=== PATIENT | female | born 1940 | race Caucasian/White ===

== ENCOUNTER 2016-09-02 18:45 | Emergency (ER) | payer MEDICARE, BC, OTHER ==
[~2016-09-02] VITALS: Ht 162.6 cm; Wt 63.5 kg
[~2016-09-02 18:45] MED LIST: CALC250T8 PO; CHLO25TA3 PO; DEXA0.5S PO; EXCEDRIN PO; IBUP100SUS FT; IBUP200T2 PO; IBUP600T26 PO; KLOR10TA5 PO; MULTTAB4 PO; OMEGA 3 PO; OMEP20CA3 PO; QVAR40AE8 INH; VENTAER IN; VICOBULK PO
[2016-09-02] MEDS ORDERED: LEVO250T24 PO (19:15)
[2016-09-02] MEDS ORDERED: ONDA4TAB6 PO (19:16)
[2016-09-02] MEDS ORDERED: AMMO12CR4 TOP (19:16)
[2016-09-02] MEDS ORDERED: NS 1,000 ML IV SCH (19:51)
[2016-09-02] MEDS ORDERED: ONDANSETRON 4MG/2ML VIAL (J2405) IV ONE (20:00)
[2016-09-02] MEDS ORDERED: NS 1,000 ML IV ONE (20:00)
[2016-09-02 20:24] LABS: BASO % 0.3 % (0.0-1.0); EOS # 0.2 K/mm3 (0.0-0.50); LARGE UNSTAINED CELL # 0.2 K/mm3 (0.0-0.4); LARGE UNSTAINED CELL % 2.5 % (0.0-4.0); LYMPH % 14.8 % (24.0-44.0); MEAN CORPUSCULAR HEMOGLOBIN 30.1 pg (27.0-33.0); MEAN CORPUSCULAR HGB CONC 32.2 g/dl (32.0-36.5); MEAN CORPUSCULAR VOLUME 93.5 fl (80.0-96.0); MONO # 0.6 K/mm3 (0.0-0.8); MONO % 9.3 % (0.0-5.0); NEUTROPHILS # 4.8 K/mm3 (1.8-7.7); PLATELET COUNT, AUTOMATED 260 k/mm3 (150-450); RED CELL DISTRIBUTION WIDTH 13.5 % (11.5-14.5); WHITE BLOOD COUNT 6.8 K/mm3 (4.0-10.0)
[2016-09-02 20:51] LABS: ALBUMIN 3.9 GM/DL (3.2-5.2); ALBUMIN/GLOBULIN RATIO 0.98 (1.00-1.93); ALKALINE PHOSPHATASE 122 U/L (45-117); ALT/SGPT 16 U/L (12-78); ANION GAP 9 MEQ/L (8-16); AST/SGOT 17 U/L (15-37); BILIRUBIN,DIRECT 0.1 MG/DL (0.0-0.2); BILIRUBIN,TOTAL 0.5 MG/DL (0.2-1.0); BLOOD UREA NITROGEN 11 MG/DL (7-18); CARBON DIOXIDE LEVEL 31 MEQ/L (21-32); CHLORIDE LEVEL 91 MEQ/L (98-107); CREATININE FOR GFR 0.76 MG/DL (0.55-1.02); GLOMERULAR FILTRATION RATE > 60.0 (>39); GLUCOSE, FASTING 110 MG/DL (83-110); POTASSIUM SERUM 3.3 MEQ/L (3.5-5.1); SODIUM LEVEL 131 MEQ/L (136-145); TOTAL PROTEIN 7.9 GM/DL (6.4-8.2)
[2016-09-02] MEDS ORDERED: POTASSIUM CHLORIDE 10 MEQ SR TABLET PO ONE (21:15)
[2016-09-02] MEDS ORDERED: METOCLOPRAMIDE INJ 10MG/2ML VIAL (J2765) IV ONE (22:00)
[2016-09-02] MEDS ORDERED: REGL10TA6 PO (23:00)
[2016-09-02 23:06] VITALS: BP 146/68
--- NOTE | 2016-09-03 09:18 | REP ---
ABDOMINAL SERIES: Supine and erect views of the abdomen demonstrate no free air and no compelling evidence for obstruction. Moderate fecal material is seen throughout the colon. Air is seen in multiple nondilated small bowel loops throughout the mid abdomen. Multiple metallic clips are seen in the right upper quadrant. There are degenerative changes of the spine and hips. An accompanying view of the chest demonstrates no acute infiltrate. Heart is normal in size and the mediastinal silhouette is unremarkable with mild calcification and tortuosity of the thoracic aorta. IMPRESSION: Negative abdominal series. Signed by Dmitri Sparrow MD 09/04/2016 04:00 P
== END 2016-09-02 23:15 | disposition home or self-care (01) ==
LOC: M ED 19:57
DX: K59.00 Constipation, unspecified (principal); R11.2 Nausea with vomiting, unspecified; I10 Essential (primary) hypertension; J45.909 Unspecified asthma, uncomplicated; F32.9 Major depressive disorder, single episode, unspecified; Z85.841 Personal history of malignant neoplasm of brain; Z91.041 Radiographic dye allergy status; Z88.8 Allergy status to other drugs, medicaments and biological substances; Z88.5 Allergy status to narcotic agent; Z88.0 Allergy status to penicillin; Z88.2 Allergy status to sulfonamides
CPT/HCPCS: 74022; 80048; 80076; 81001; 83605; 83690; 85025; 87088; 87186; 96374; 96375; 99282; J2405; J2765

== ENCOUNTER → 2016-09-14 | Outpatient (REF) | payer MEDICARE, OTHER ==
[~2016-09-14] MED LIST changes: +AMMO12CR4 TOP; +LEVO250T24 PO; +ONDA4TAB6 PO; +REGL10TA6 PO
[2016-09-14 12:57] LABS: MEAN CORPUSCULAR HEMOGLOBIN 30.6 pg (27.0-33.0); MEAN CORPUSCULAR HGB CONC 32.5 g/dl (32.0-36.5); MEAN CORPUSCULAR VOLUME 94.2 fl (80.0-96.0); RED CELL DISTRIBUTION WIDTH 13.3 % (11.5-14.5); WHITE BLOOD COUNT 6.6 K/mm3 (4.0-10.0)
[2016-09-14 14:34] LABS: EOSINOPHILS 15 % (0-5)
[2016-09-14 14:37] LABS: ANISOCYTOSIS 1+
== END ==
LOC: M LAB REF 12:12
PROVIDERS: ATTEND Nurse Practitioner Family
DX: R11.2 Nausea with vomiting, unspecified (principal)

== ENCOUNTER → 2016-09-18 | Outpatient (REF) | payer MEDICARE, OTHER | LOC: M SMT 13:11 | PROVIDERS: ATTEND Nurse Practitioner Family | DX: R35.0 Frequency of micturition (principal) | CPT/HCPCS: 51798; 81001; 87086; G0463 ==

== ENCOUNTER → 2016-09-27 | Outpatient (CLI) | payer MEDICARE, BC, OTHER ==
[~2016-09-27] MED LIST changes: +E-Z-GAS II EFFERVESCENT PACKET (SODIUM BICARB./CITRIC ACID/SIMETHICONE) As Ordered ONE; +E-Z-HD 98% w/w 340GM SUSP BTL As Ordered ONE; +E-Z-PAQUE 96% w/w SUSP 176GM BTL As Ordered ONE
--- NOTE | 2016-09-27 16:37 | REP ---
ESOPHAGRAM, AIR CONTRAST: The procedure was performed under the direct supervision of Dr. Sparrow. The images were reviewed with Dr. Sparrow. A single view PA chest x-ray is submitted as a geotechnical laboratory technician film. There is no change compared to a previous chest x-ray performed on 09/02/2016. Liquid barium and gas-producing granules were given in the erect position as well as liquid barium in the prone oblique position in order to perform a double contrast esophagram examination. The oral and pharyngeal stages of deglutition are unremarkable. Esophageal transport is prompt and efficient and there is no esophagitis, stricture, mucosal ring or hiatal hernia. Gastroesophageal reflux is not demonstrated on this examination. IMPRESSION: Essentially unremarkable double contrast esophagram examination. 1 minute and 14 seconds of fluoroscopy time was utilized for this procedure. Reviewed by SHEELA Castellanos 09/28/2016 04:17 PEdited and Signed by Dmitri Sparrow MD 09/28/2016 04:21 P
== END ==
LOC: M RAD 08:28
PROVIDERS: ATTEND Nurse Practitioner Family
DX: K21.9 Gastro-esophageal reflux disease without esophagitis (principal)

== ENCOUNTER → 2016-10-03 | Outpatient (CLI) | payer MEDICARE, BC, OTHER ==
[~2016-10-03] MED LIST changes: -E-Z-GAS II EFFERVESCENT PACKET (SODIUM BICARB./CITRIC ACID/SIMETHICONE) As Ordered ONE; -E-Z-HD 98% w/w 340GM SUSP BTL As Ordered ONE; -E-Z-PAQUE 96% w/w SUSP 176GM BTL As Ordered ONE
--- NOTE | 2016-10-03 17:06 | REP ---
Attempted CT abdomen pelvis: History: Urinary frequency. The study was postponed because preliminary digital block sorter views of the abdomen demonstrate a large amount of retained high-density barium in the abdomen and pelvis. The patient had esophagram on 09/27/2016. High-density barium would preclude good visualization on CT scanning. The patient has been rescheduled. Signed by Tomas Velasco MD 10/04/2016 10:17 A
== END ==
LOC: M RAD 16:08
PROVIDERS: ATTEND Nurse Practitioner Family
DX: R35.0 Frequency of micturition (principal); Z53.09 Procedure and treatment not carried out because of other contraindication

== ENCOUNTER → 2016-10-24 | Outpatient (CLI) | payer MEDICARE, BC, OTHER ==
[~2016-10-24] MED LIST changes: +BENA25CA4 PO; +BUDE180INH INH; +CALC500T49 PO; +CALC750T PO; +CHLO125TA PO; +EXCETAB81 PO; +GABA-283 PO; +LEVO250T12 PO; -LEVO250T24 PO; +MACR100C43 PO; +MULT1TAB10 PO; +ONDA4TAB5 PO; +POTA10TA16 PO; +PULM0.5S INH; +PULM90IN INH; +TIZA4CAP3 PO; +[UNRECOGNIZED DRUG - CODE] PO; +[UNRECOGNIZED DRUG - REMARK]
--- NOTE | 2016-10-24 13:46 | REP ---
Clinical: Recurrent urinary tract infection. Comparison: 08/15/2012 . Findings: Lung bases demonstrate chronic interstitial changes and mild emphysematous disease. Liver, spleen, pancreas, bilateral adrenal glands and left kidney appear normal for noncontrast evaluation. The right kidney includes 1.6 cm hypodensity likely representing cyst and stable compared to prior. The enteric system demonstrates moderate fecal stasis without bowel obstruction or obvious acute inflammatory process. Diverticulosis noted without acute diverticulitis. Pelvis demonstrates normal bladder and evidence for prior hysterectomy. No ascites. No free air. No obvious adenopathy. Atherosclerotic changes to the vasculature noted without aneurysm. Musculoskeletal structures demonstrate degenerative changes to the lumbosacral spine and bilateral hips. Impression: 1. 1.6 cm right renal hypodensity likely representing cyst and stable. 2. Moderate fecal stasis and diverticulosis without acute obstruction or inflammatory process. 3. Chronic changes as described above without acute abdominopelvic pathology otherwise appreciated. Signed by Maxx Cadena MD 10/24/2016 01:39 P
== END ==
LOC: M RAD 13:10
PROVIDERS: ATTEND Nurse Practitioner Family
DX: N39.0 Urinary tract infection, site not specified (principal)

== ENCOUNTER 2016-10-27 15:56 | Emergency (ER) | payer MEDICARE, BC, OTHER ==
[~2016-10-27] VITALS: Ht 162.6 cm; Wt 92.5 kg
[~2016-10-27 15:56] MED LIST changes: -BENA25CA4 PO; -BUDE180INH INH; -CALC500T49 PO; -CALC750T PO; -CHLO125TA PO; -EXCETAB81 PO; -GABA-283 PO; -MACR100C43 PO; -MULT1TAB10 PO; -ONDA4TAB5 PO; -POTA10TA16 PO; -PULM0.5S INH; -PULM90IN INH; -TIZA4CAP3 PO; -[UNRECOGNIZED DRUG - CODE] PO; -[UNRECOGNIZED DRUG - REMARK]
[2016-10-27] MEDS ORDERED: PULM0.5S INH (16:07)
[2016-10-27] MEDS ORDERED: MACR100C43 PO (16:07)
--- NOTE | 2016-10-27 17:02 | REP ---
Clinical: Trauma to . Comparison: 05/30/2015 . Findings: Right periorbital and right facial contusion/hematoma. The ventricles, sulci, and cisterns are normal in position and appearance. Sparrow-white differentiation is maintained. No acute intracranial hemorrhage, mass/mass effect, pathology or trauma/injury. No evidence for acute infarction. No extra-axial fluid collection. Calvarium is intact. Paranasal sinuses and mastoid air cells are clear. Impression: Right periorbital and right facial contusion and hematoma. No evidence for acute intracranial pathology or trauma/injury. Signed by Maxx Cadena MD 10/27/2016 04:54 P
[2016-10-27 17:10] VITALS: BP 143/76
[2017-01-04] MEDS ORDERED: EXCETAB81 PO (13:54)
[2017-01-04] MEDS ORDERED: ONDA4TAB5 PO (13:54)
[2017-01-04] MEDS ORDERED: TIZA4CAP3 PO (13:54)
[2017-01-04] MEDS ORDERED: POTA10TA16 PO (13:54)
[2017-01-04] MEDS ORDERED: MULT1TAB10 PO (13:54)
[2017-01-04] MEDS ORDERED: OMEP20CA3 PO (13:54)
[2017-01-04] MEDS ORDERED: CHLO125TA PO (13:54)
[2017-01-04] MEDS ORDERED: CALC500T49 PO (13:54)
[2017-01-04] MEDS ORDERED: CALC750T PO (13:54)
[2017-01-04] MEDS ORDERED: BUDE180INH INH (14:02)
[2017-01-04] MEDS ORDERED: PULM90IN INH (14:02)
[2017-01-04] MEDS ORDERED: [UNRECOGNIZED DRUG - REMARK] (14:03)
== END 2016-10-27 17:21 | disposition home or self-care (01) ==
LOC: M ED 15:56
DX: S00.03XA Contusion of scalp, initial encounter (principal); S00.01XA Abrasion of scalp, initial encounter; W19.XXXA Unspecified fall, initial encounter; Y92.009 Unspecified place in unspecified non-institutional (private) residence as the place of occurrence of the external cause; Y93.89 Activity, other specified; Y99.8 Other external cause status; E78.00 Pure hypercholesterolemia, unspecified; J45.909 Unspecified asthma, uncomplicated; M54.9 Dorsalgia, unspecified; F32.9 Major depressive disorder, single episode, unspecified; N39.0 Urinary tract infection, site not specified; Z91.041 Radiographic dye allergy status; Z88.8 Allergy status to other drugs, medicaments and biological substances; Z88.0 Allergy status to penicillin; Z88.5 Allergy status to narcotic agent; Z88.2 Allergy status to sulfonamides; Z79.899 Other long term (current) drug therapy; Z79.2 Long term (current) use of antibiotics

== ENCOUNTER 2017-01-07 09:32 | Outpatient (CLI) | payer MEDICARE, BC, OTHER ==
[~2017-01-07] VITALS: Ht 165.1 cm; Wt 59.9 kg
[~2017-01-07 09:32] MED LIST changes: +BUDE180INH INH; +CALC500T49 PO; +CALC750T PO; +CHLO125TA PO; +EXCETAB81 PO; +MACR100C43 PO; +MULT1TAB10 PO; +ONDA4TAB5 PO; +POTA10TA16 PO; +PULM0.5S INH; +PULM90IN INH; +TIZA4CAP3 PO; +[UNRECOGNIZED DRUG - REMARK]
[2017-01-07] MEDS ORDERED: NS 1,000 ML IV ONE (09:45)
[2017-01-07] MEDS ORDERED: BENA25CA4 PO (10:08)
[2017-01-07] MEDS ORDERED: PROPOFOL 200 MG/20 ML VIAL As Ordered ONE (10:11)
[2017-01-07] MEDS ORDERED: LIDOCAINE 2% INJ 100 MG/5 ML SDV (FOR ANES.) As Ordered ONE (10:11)
--- NOTE | 2017-01-07 10:34 | ROOR ---
Patient Name: Viri Rodriguez Procedure Date: 01/07/2017 10:17 AM Date of : 1940 Age: 76 Room: [facility] Gender: Female Note Status: Finalized Procedure: Upper Endoscopy + Biopsies Indications: Heartburn, Nausea Providers: Marlo Ansari MD Referring MD: Min AGRAWAL NP Requesting Provider: Medicines: Monitored Anesthesia Care Complications: No immediate complications. Procedure: Pre-Anesthesia Assessment: - The heart rate, respiratory rate, oxygen saturations, blood pressure, adequacy of pulmonary ventilation, and response to care were monitored throughout the procedure. The Endoscope was introduced through the mouth, and advanced to the second part of duodenum. The upper GI endoscopy was accomplished without difficulty. The patient tolerated the procedure well. Findings: The Z-line was regular and was found 37 cm from the incisors. A small hiatal hernia was present. Diffuse mild inflammation characterized by congestion (edema) and erythema was found in the cardia, in the gastric fundus and in the gastric body. Biopsies were taken with a cold forceps for Helicobacter pylori testing. The exam of the duodenum was otherwise normal. Impression: - Z-line regular, 37 cm from the incisors. - Small hiatal hernia. - Chronic gastritis. Biopsied. - The examination was otherwise normal. Recommendation: - Patient has a contact number available for emergencies. The signs and symptoms of potential delayed complications were discussed with the patient. Return to normal activities tomorrow. Written discharge instructions were provided to the patient. - High fiber diet. - Discharge patient to home. - Continue present medications. - Await pathology results. - Telephone GI clinic for pathology results in 1 week. - Return to referring physician. - The findings and recommendations were discussed with the patient's family. Marlo Ansari MD Marlo Ansari MD 01/07/2017 10:34:04 AM This report has been signed electronically. Number of Addenda: 0 Note Initiated On: 01/07/2017 10:17 AM Estimated Blood Loss: Estimated blood loss: none.
[2017-01-07 10:50] VITALS: BP 114/60
== END 2017-01-07 11:15 | disposition home or self-care (01) ==
LOC: M OPP 09:32
PROVIDERS: ATTEND Internal Medicine Gastroenterology
DX: R12 Heartburn (principal); R11.0 Nausea; K44.9 Diaphragmatic hernia without obstruction or gangrene; K29.70 Gastritis, unspecified, without bleeding; K21.9 Gastro-esophageal reflux disease without esophagitis; K59.00 Constipation, unspecified; I10 Essential (primary) hypertension; M19.90 Unspecified osteoarthritis, unspecified site; M62.830 Muscle spasm of back; Z78.0 Asymptomatic menopausal state; J45.909 Unspecified asthma, uncomplicated; G47.30 Sleep apnea, unspecified; R06.83 Snoring; D35.00 Benign neoplasm of unspecified adrenal gland; Z88.8 Allergy status to other drugs, medicaments and biological substances; Z88.0 Allergy status to penicillin; Z88.2 Allergy status to sulfonamides; Z91.041 Radiographic dye allergy status; Z79.899 Other long term (current) drug therapy

== ENCOUNTER 2017-02-06 09:21 | Emergency (ER) | payer MEDICARE, BC, OTHER ==
[~2017-02-06] VITALS: Ht 162.6 cm; Wt 58.2 kg
[~2017-02-06 09:21] MED LIST changes: +BENA25CA4 PO
[2017-02-06] MEDS ORDERED: [UNRECOGNIZED DRUG - CODE] PO (09:36)
[2017-02-06] MEDS ORDERED: GABA-283 PO (09:36)
[2017-02-06] MEDS ORDERED: METOCLOPRAMIDE INJ 10MG/2ML VIAL (J2765) IV ONE (10:15)
[2017-02-06] MEDS ORDERED: NS 1,000 ML IV ONE (10:15)
[2017-02-06] MEDS ORDERED: PANTOPRAZOLE 40MG INJ (PROTONIX) (C9113) IV ONE (10:15)
[2017-02-06 10:38] LABS: BASO % 0.3 % (0.0-1.0); EOS # 0.2 10^3/uL (0.0-0.50); EOS % 3.3 % (0.0-3.0); IMMATURE GRANULOCYTE % 0.2 % (0-0); LYMPH # 0.4 10^3/uL (1.5-4.5); LYMPH % 7.4 % (24.0-44.0); MEAN CORPUSCULAR HEMOGLOBIN 28.8 pg (27.0-33.0); MEAN CORPUSCULAR HGB CONC 33.6 g/dl (32.0-36.5); MEAN CORPUSCULAR VOLUME 85.8 fl (80.0-96.0); MONO # 0.6 10^3/uL (0.0-0.8); MONO % 9.5 % (0.0-5.0); NEUTROPHILS # 4.6 10^3/uL (1.8-7.7); NEUTROPHILS % 79.3 % (36.0-66.0); PLATELET COUNT, AUTOMATED 276 10^3/uL (150-450); RED CELL DISTRIBUTION WIDTH 15.2 % (11.5-14.5); WHITE BLOOD COUNT 5.8 10^3/uL (4.0-10.0)
[2017-02-06 11:07] LABS: ALBUMIN 4.1 GM/DL (3.2-5.2); ALBUMIN/GLOBULIN RATIO 1.05 (1.00-1.93); ALKALINE PHOSPHATASE 131 U/L (45-117); ALT/SGPT 20 U/L (12-78); AMYLASE 52 U/L (25-115); ANION GAP 7 MEQ/L (8-16); AST/SGOT 29 U/L (15-37); BILIRUBIN,DIRECT 0.2 MG/DL (0.0-0.2); BILIRUBIN,TOTAL 0.6 MG/DL (0.2-1.0); BLOOD UREA NITROGEN 9 MG/DL (7-18); CALCIUM LEVEL 9.2 MG/DL (8.8-10.2); CARBON DIOXIDE LEVEL 32 MEQ/L (21-32); CHLORIDE LEVEL 95 MEQ/L (98-107); CREATININE FOR GFR 0.76 MG/DL (0.55-1.02); GLOMERULAR FILTRATION RATE > 60.0 (>39); GLUCOSE, FASTING 123 MG/DL (83-110); POTASSIUM SERUM 3.3 MEQ/L (3.5-5.1); SODIUM LEVEL 134 MEQ/L (136-145)
[2017-02-06] MEDS ORDERED: KETOROLAC 30 MG/ML VIAL (J1885) IV ONE (12:45)
[2017-02-06] MEDS ORDERED: POTASSIUM CHLORIDE 10 MEQ SR TABLET PO ONE (12:45)
[2017-02-06] MEDS ORDERED: REGL10TA6 PO (13:36)
[2017-02-06 13:43] VITALS: BP 128/68
== END 2017-02-06 13:44 | disposition home or self-care (01) ==
LOC: M ED 09:21
DX: K29.50 Unspecified chronic gastritis without bleeding (principal); K44.9 Diaphragmatic hernia without obstruction or gangrene; Z79.899 Other long term (current) drug therapy; Z91.041 Radiographic dye allergy status; Z88.8 Allergy status to other drugs, medicaments and biological substances; Z88.5 Allergy status to narcotic agent; Z88.0 Allergy status to penicillin; Z88.2 Allergy status to sulfonamides
CPT/HCPCS: 36415; 80048; 80076; 81001; 82150; 83605; 83690; 85025; 96374; 96375; 99283; C9113; J1885; J2765

== ENCOUNTER 2017-09-28 15:58 | Emergency (ER) | payer MEDICARE, BC, OTHER ==
[2017-09-28 17:37] LABS: BASO # 0.1 10^3/uL (0.0-0.2); BASO % 0.8 % (0.0-1.0); EOS # 0.4 10^3/uL (0.0-0.50); EOS % 6.7 % (0.0-3.0); HEMATOCRIT 39.3 % (36.0-47.0); HEMOGLOBIN 12.9 g/dl (12.0-15.5); IMMATURE GRANULOCYTE % 0.5 % (0-3.0); LYMPH # 1.4 10^3/uL (1.5-4.5); LYMPH % 20.9 % (24.0-44.0); MEAN CORPUSCULAR HEMOGLOBIN 28.5 pg (27.0-33.0); MEAN CORPUSCULAR HGB CONC 32.8 g/dl (32.0-36.5); MEAN CORPUSCULAR VOLUME 86.8 fl (80.0-96.0); MONO # 0.8 10^3/uL (0.0-0.8); MONO % 12.7 % (0.0-5.0); NEUTROPHILS # 3.8 10^3/uL (1.8-7.7); NEUTROPHILS % 58.4 % (36.0-66.0); PLATELET COUNT, AUTOMATED 243 10^3/uL (150-450); RED BLOOD COUNT 4.53 10^6/uL (4.00-5.40); RED CELL DISTRIBUTION WIDTH 14.7 % (11.5-14.5); WHITE BLOOD COUNT 6.5 10^3/uL (4.0-10.0)
[2017-09-28 17:47] LABS: INR 0.93; PROTHROMBIN TIME 12.5 SECONDS (12.4-14.5)
[2017-09-28] MEDS: NORCO, ANEXSIA 5/325MG TABLET (HYDROcodone/ACETAMINOPHEN) PO (17:47)
[2017-09-28] MEDS: ONDANSETRON 4MG/2ML VIAL (J2405) IV (17:47)
[2017-09-28 17:48] LABS: PARTIAL THROMBOPLASTIN TIME 30.7 SECONDS (26.8-37.9)
[2017-09-28 17:52] LABS: ALBUMIN 4.1 GM/DL (3.2-5.2); ALBUMIN/GLOBULIN RATIO 1.05 (1.00-1.93); ALKALINE PHOSPHATASE 98 U/L (45-117); ALT/SGPT 22 U/L (12-78); ANION GAP 5 MEQ/L (8-16); AST/SGOT 24 U/L (7-37); BILIRUBIN,DIRECT 0.1 MG/DL (0.0-0.2); BILIRUBIN,TOTAL 0.5 MG/DL (0.2-1.0); BLOOD UREA NITROGEN 10 MG/DL (7-18); CALCIUM LEVEL 8.7 MG/DL (8.8-10.2); CARBON DIOXIDE LEVEL 31 MEQ/L (21-32); CHLORIDE LEVEL 95 MEQ/L (98-107); CPK CREATINE PHOSPHOKINASE 151 U/L (26-192); CREATININE FOR GFR 0.78 MG/DL (0.55-1.30); GLOMERULAR FILTRATION RATE > 60.0 (>39); GLUCOSE, FASTING 92 MG/DL (70-100); LIPASE 112 U/L (73-393); MB/CK RELATIVE INDEX 0.66 (< OR =4); SODIUM LEVEL 131 MEQ/L (136-145); TROPONIN I < 0.02 NG/ML (< 0.10)
[2017-09-28] MEDS: diphenhydrAMINE INJ 50MG/ML VIAL (J1200) IV (18:22)
[2017-09-28] MEDS: methylPREDNISolone INJ 125 MG/2 ML VIAL (J2930) IV (18:22)
[2017-09-28] MEDS ORDERED: ISOVUE-370 76% 100ML VIAL (Q9967) As Ordered (18:55)
[2017-09-28 22:30] LABS: CK-MB VALUE MASS 1.2 NG/ML (<3.6); CPK CREATINE PHOSPHOKINASE 169 U/L (26-192); MB/CK RELATIVE INDEX 0.71 (< OR =4); TROPONIN I < 0.02 NG/ML (< 0.10)
[2017-09-28] MEDS: MORPHINE 4 MG/ML 1ML VIAL/SYRINGE (J2270) IV (23:37)
== END 2017-09-28 23:52 | disposition home or self-care (01) ==
LOC: M ED 15:58
DX: M54.6 Pain in thoracic spine (principal); G89.29 Other chronic pain; J45.909 Unspecified asthma, uncomplicated; G47.30 Sleep apnea, unspecified; K21.9 Gastro-esophageal reflux disease without esophagitis; F33.9 Major depressive disorder, recurrent, unspecified; J32.9 Chronic sinusitis, unspecified; Z98.890 Other specified postprocedural states; Z91.041 Radiographic dye allergy status; Z79.899 Other long term (current) drug therapy; Z87.891 Personal history of nicotine dependence; Z86.018 Personal history of other benign neoplasm; Z88.8 Allergy status to other drugs, medicaments and biological substances; Z88.0 Allergy status to penicillin; Z88.2 Allergy status to sulfonamides; Z88.5 Allergy status to narcotic agent
CPT/HCPCS: J2270

== ENCOUNTER 2019-04-29 15:26 | Emergency (ER) | payer MEDICARE, BC, OTHER ==
[~2019-04-29] VITALS: Ht 162.6 cm; Wt 60.5 kg
[~2019-04-29 15:26] MED LIST changes: -AMMO12CR4 TOP; +AMMO12CR7 TOP; +DEXA5LQ; +GABA-845 PO; +GABA600T4 PO; +HYDR-3719; +IBUP100S44 FT; -IBUP100SUS FT; +NAPR-837 PO; +OMEG12002 PO; +OMEP-172 PO; +TIZA4CAP PO; -TIZA4CAP3 PO; +[UNRECOGNIZED DRUG - CODE] PO
[2019-04-29] MEDS ORDERED: SILVER NITRATE APPLICATOR TOP ONE (16:00)
[2019-04-29] MEDS ORDERED: OXYMETAZOLINE NASAL SPRAY (AFRIN) ONE (16:00)
[2019-04-29] MEDS ORDERED: NS 500 ML IV ONE (16:00)
[2019-04-29 16:23] LABS: HEMATOCRIT 46.9 % (36.0-47.0); HEMOGLOBIN 14.7 g/dl (12.0-15.5); MEAN CORPUSCULAR HEMOGLOBIN 29.4 pg (27.0-33.0); MEAN CORPUSCULAR HGB CONC 31.3 g/dl (32.0-36.5); MEAN CORPUSCULAR VOLUME 93.8 fl (80.0-96.0); PLATELET COUNT, AUTOMATED 259 10^3/uL (150-450); WHITE BLOOD COUNT 7.6 10^3/uL (4.0-10.0)
[2019-04-29] MEDS ORDERED: occuvite PO (16:33)
[2019-04-29] MEDS ORDERED: tumeric PO (16:33)
[2019-04-29] MEDS ORDERED: vitamin b PO (16:33)
[2019-04-29 16:35] LABS: PARTIAL THROMBOPLASTIN TIME 29.9 SECONDS (25.0-38.4); PROTHROMBIN TIME 12.9 SECONDS (11.8-14.0)
[2019-04-29] MEDS ORDERED: DOXY100C37 PO (18:07)
[2019-04-29 18:22] VITALS: BP 164/77
[2019-04-29] MEDS ORDERED: DOXYCYCLINE HYCLATE 100 MG TAB PO ONE (18:30)
[2019-04-29] MEDS ORDERED: ONDANSETRON 4 MG ORAL DISINTEGRATING TAB (Q0162 PER 1MG) PO ONE (18:30)
== END 2019-04-29 19:21 | disposition home or self-care (01) ==
LOC: M ED 15:26
DX: R04.0 Epistaxis (principal); Z91.041 Radiographic dye allergy status; Z88.0 Allergy status to penicillin; Z88.2 Allergy status to sulfonamides; Z88.8 Allergy status to other drugs, medicaments and biological substances; Z79.899 Other long term (current) drug therapy
CPT/HCPCS: 85027; 85610; 85730; 86850; 86900; 86901; 99283; Q0162

== ENCOUNTER → 2019-10-02 | Outpatient (CLI) | payer MEDICARE, BC, OTHER ==
[~2019-10-02] MED LIST changes: +DOXY100C37 PO; -OMEP-172 PO; +OMEP1CAP73 PO; +ONDA-83 PO; -ONDA4TAB5 PO; +occuvite PO; +tumeric PO; +vitamin b PO
== END ==
LOC: M LABSMTC 11:49
PROVIDERS: ATTEND Physician Assistant
DX: Z11.59 Encounter for screening for other viral diseases (principal)

== ENCOUNTER → 2020-05-23 | Outpatient (REF) | payer MEDICARE, OTHER ==
[2020-05-23 18:00] LABS: APPEARANCE, URINE CLEAR (CLEAR); BACTERIA, URINE AUTO NEGATIVE (NEGATIVE); BILIRUBIN, URINE AUTO NEGATIVE (NEGATIVE); BLOOD, URINE BLOOD NEGATIVE (NEGATIVE); COLOR, URINE YELLOW (YELLOW); GLUCOSE, URINE (UA) AUTO NEGATIVE (NEGATIVE); KETONE, URINE AUTO NEGATIVE (NEGATIVE); LEUKOCYTE ESTERASE, URINE AUTO NEGATIVE (NEGATIVE); NITRITE, URINE AUTO NEGATIVE (NEGATIVE); PROTEIN, URINE AUTO NEGATIVE (NEGATIVE); RBC, URINE AUTO 1 /HPF (0-3); SPECIFIC GRAVITY URINE AUTO 1.006 (1.002-1.035); SQUAMOUS EPITHELIAL CELL UR AU 0 /HPF (0-6); UROBILINOGEN, URINE AUTO 0.2 mg/dL (0.0-2.0); WBC, URINE AUTO 0 /HPF (0-3)
== END ==
LOC: M SMT 17:08
PROVIDERS: ATTEND Nurse Practitioner Family
DX: N39.0 Urinary tract infection, site not specified (principal)
CPT/HCPCS: 81001; 87086; G0463

== ENCOUNTER → 2020-07-05 | Outpatient (CLI) | payer MEDICARE, BC, OTHER ==
--- NOTE | 2020-07-05 14:16 | REP ---
INDICATION: CHRONIC SINUSITIS. COMPARISON: Comparison is made with images from CT study of the brain dated October 27, 2016.. TECHNIQUE: Helical scanning is acquired and 2 mm axial images re-formatted. Coronal MPR images are generated and reviewed. FINDINGS: Digital preliminary plastic sheets finishing supervisor radiographs demonstrate large well pneumatized frontal sinuses bilaterally. The frontal sinuses are clear on axial and multiplanar re-formation CT images. There is no evidence of ethmoid sinus opacification. There are minimal mucosal thickening changes in the anterior ethmoid and the inferomedial frontal sinuses bilaterally. Maxillary sinuses are clear. Sphenoid sinuses are clear. Mastoid aeration is normal and symmetric. There are small pneumatized maxwell bullosa bilaterally. The ostiomeatal complexes are widely patent bilaterally however, there are bilateral Maris cells left larger than right. There is minimal mucosal thickening along the superior wall of the left infundibulum. Bony nasal septum is in the midline. Nasal turbinates soft tissues are otherwise unremarkable. Fairly prominent torus palatinus is noted. This is a normal variant. There are small maxillary kathya. 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 No intraorbital abnormality is seen. The visualized intracranial structures show minimal generalized volume loss. IMPRESSION: There are minimal mucosal changes as above. Bilateral Maris cells are noted. <Electronically signed by Jason Velasco > 07/05/20 [id number]
== END ==
LOC: M RAD 13:26
PROVIDERS: ATTEND Registered Nurse
DX: J32.9 Chronic sinusitis, unspecified (principal)

== ENCOUNTER → 2020-12-21 | Outpatient (REF) | payer MEDICARE, OTHER, BC ==
[~2020-12-21] MED LIST changes: -DOXY100C37 PO; +DOXY1CAP62 PO; +GABA-283 PO; -GABA-845 PO
[2020-12-21 17:28] LABS: C REACTIVE PROTEIN QUANTITATIV < 0.30 MG/DL (0.00-0.30); RHEUMATOID FACTOR QUANT < 10.0 IU/ML (<15.0)
== END ==
LOC: M LAB REF 16:38
PROVIDERS: ATTEND Registered Nurse
DX: M13.0 Polyarthritis, unspecified (principal)

== ENCOUNTER → 2021-06-23 | Outpatient (CLI) | payer BC, MEDICARE, OTHER ==
[~2021-06-23] MED LIST changes: +DEXA0.5E2 PO; +DOXY-443 PO; -DOXY1CAP62 PO; +DULO-34 PO; +FLUTISP; -HYDR-3719; +HYDR-3719 PO; -LEVO250T12 PO; +LEVO250T3 PO; +MULT-90 PO; +OCUVCAP2 PO; +OXYC1TAB23 PO; +POTA-149 PO; -POTA10TA16 PO; +POTA1TAB23 PO; +SUPETAB44 PO; +TIZA10TA PO; +TURM500C PO; +VIAC1CHW PO; +ZINC1TAB2 PO
== END ==
LOC: M LABSMTC 09:35
PROVIDERS: ATTEND Anesthesiology
DX: Z01.812 Encounter for preprocedural laboratory examination (principal); Z20.822 Contact with and (suspected) exposure to COVID-19

== ENCOUNTER 2021-06-28 08:51 | Day surgery (SDC) | payer OTHER ==
[~2021-06-28] VITALS: Ht 162.6 cm; Wt 59.8 kg
[~2021-06-28 08:51] MED LIST changes: +NS 1,000 ML IV ONE
[2021-06-28] MEDS ORDERED: LIDOCAINE 2% 100MG/5ML SDV (FOR ANES.) As Ordered ONE (09:29)
[2021-06-28] MEDS ORDERED: fentaNYL 100 MCG/2 ML INJECTION As Ordered ONE (09:29)
[2021-06-28] MEDS ORDERED: propofoL 500 MG/50 ML VIAL As Ordered ONE (09:29)
[2021-06-28 11:40] VITALS: BP 119/58
== END 2021-06-28 11:53 | disposition home or self-care (01) ==
LOC: M OPP 08:51
PROVIDERS: ATTEND Internal Medicine Gastroenterology
DX: Z12.11 Encounter for screening for malignant neoplasm of colon (principal); K57.30 Diverticulosis of large intestine without perforation or abscess without bleeding; K64.0 First degree hemorrhoids; K31.89 Other diseases of stomach and duodenum; R12 Heartburn; Z79.891 Long term (current) use of opiate analgesic; Z79.899 Other long term (current) drug therapy; Z88.0 Allergy status to penicillin; Z88.2 Allergy status to sulfonamides; Z88.8 Allergy status to other drugs, medicaments and biological substances; Z91.041 Radiographic dye allergy status
CPT/HCPCS: 43239; 88305; 88342; G0121; J3010

== ENCOUNTER → 2021-07-25 | Outpatient (CLI) | payer OTHER ==
[~2021-07-25] MED LIST changes: -NS 1,000 ML IV ONE
== END ==
LOC: M WHC 14:07
PROVIDERS: ATTEND Registered Nurse
DX: M81.0 Age-related osteoporosis without current pathological fracture (principal)

== ENCOUNTER 2021-08-26 13:03 | Observation (INO) | payer OTHER ==
[~2021-08-26] VITALS: Ht 162.6 cm; Wt 57.2 kg
[2021-08-26] MEDS ORDERED: NS 500 ML IV ONE ×2 (14:10→16:05)
[2021-08-26] MEDS ORDERED: METOCLOPRAMIDE INJ 10MG/2ML VIAL (J2765 PER 1) IV ONE (14:10)
[2021-08-26 14:57] LABS: BASO % 0.4 % (0.0-1.0); EOS % 0.6 % (0.0-3.0); HEMOGLOBIN 15.7 g/dl (12.0-15.5); LYMPH # 0.9 10^3/uL (1.5-5.0); LYMPH % 16.9 % (24.0-44.0); MEAN CORPUSCULAR HGB CONC 34.1 g/dl (32.0-36.5); MEAN CORPUSCULAR VOLUME 93.9 fl (80.0-96.0); MONO # 0.6 10^3/uL (0.0-0.8); NEUTROPHILS # 3.6 10^3/uL (1.5-8.5); NEUTROPHILS % 69.7 % (36.0-66.0); PLATELET COUNT, AUTOMATED 194 10^3/uL (150-450); WHITE BLOOD COUNT 5.2 10^3/uL (4.0-10.0)
[2021-08-26 15:59] LABS: ALBUMIN 4.2 GM/DL (3.2-5.2); ALT/SGPT 22 U/L (12-78); BILIRUBIN,DIRECT 0.1 MG/DL (0.0-0.2); BILIRUBIN,TOTAL 0.5 MG/DL (0.2-1.0); BLOOD UREA NITROGEN 15 MG/DL (7-18); CALCIUM LEVEL 9.8 MG/DL (8.8-10.2); CARBON DIOXIDE LEVEL 33 MEQ/L (21-32); CHLORIDE LEVEL 86 MEQ/L (98-107); CREATININE FOR GFR 0.62 MG/DL (0.55-1.30); GLOMERULAR FILTRATION RATE > 60.0 (>39); GLUCOSE, FASTING 100 MG/DL (70-100); LIPASE 101 U/L (73-393); POTASSIUM SERUM 3.3 MEQ/L (3.5-5.1); SODIUM LEVEL 128 MEQ/L (136-145); TOTAL PROTEIN 7.6 GM/DL (6.4-8.2)
[2021-08-26] MEDS ORDERED: KCL 10MEQ/100ML SWI (KRUN) 10 MEQ in IV 1 EA IV ONE ×2 (16:05→19:30)
[2021-08-26 16:13] LABS: MAGNESIUM LEVEL 1.9 MG/DL (1.8-2.4)
[2021-08-26] MEDS ORDERED: ONDANSETRON 4MG/2ML VIAL IV ONE (16:55)
[2021-08-26] MEDS ORDERED: NS 1,000 ML IV ONE (19:30)
[2021-08-26] MEDS ORDERED: fentaNYL 100 MCG/2 ML INJECTION IV ONE (19:30)
[2021-08-26] MEDS ORDERED: ONDANSETRON 4MG/2ML VIAL IV PRN (20:05)
[2021-08-26] MEDS ORDERED: PROMETHAZINE 25MG/ML 1ML VIAL IV PRN (20:05)
[2021-08-26] MEDS ORDERED: LIDOCAINE 5% (LIDODERM) PATCH TD PRN (20:05)
[2021-08-26] MEDS ORDERED: ACETAMINOPHEN TAB 650MG DOSE (2X325MG) PO PRN (20:05)
[2021-08-26] MEDS ORDERED: MORPHINE 4 MG/ML 1ML VIAL/SYRINGE IV PRN (20:15)
[2021-08-26] MEDS ORDERED: TIZA10TA PO ×2 (20:21)
[2021-08-26] MEDS ORDERED: ALBU83IN NEB (20:22)
[2021-08-26] MEDS ORDERED: HOME MED LIST COMPLETE! XX SCH (20:25)
[2021-08-26] MEDS ORDERED: ALBUTEROL SULFATE 2.5 MG/0.5 ML INH NEB SOLN NEB PRN (20:50)
[2021-08-26] MEDS ORDERED: FLUTICASONE HFA 110 MCG 12 GM INHALER (FLOVENT) INH SCH (21:00)
[2021-08-26] MEDS ORDERED: **NOTE PATIENT COMMENT** MISC XX SCH (21:00)
[2021-08-26] MEDS: KETOROLAC 30 MG/ML 1ML VIAL IV PRN (21:31)
[2021-08-26] MEDS: PANTOPRAZOLE 40MG VIAL IV SCH (21:31)
[2021-08-26] MEDS: KCL 20MEQ in NS 1000ML 1,000 ML IV SCH (22:28)
[2021-08-26 23:13] LABS: INR 0.89; PROTHROMBIN TIME 12.4 SECONDS (12.7-14.5)
[2021-08-26 23:14] LABS: PARTIAL THROMBOPLASTIN TIME 29.9 SECONDS (25.9-37.0)
[2021-08-26] MEDS ORDERED: BUDE180INH INH (23:51)
[2021-08-27] MEDS ORDERED: hydrOXYzine 50 MG TAB PO ONE (04:15)
[2021-08-27] MEDS: KCL 20MEQ in NS 1000ML 1,000 ML IV SCH (06:00)
[2021-08-27 06:14] LABS: HEMATOCRIT 43.8 % (36.0-47.0); MEAN CORPUSCULAR HEMOGLOBIN 31.9 pg (27.0-33.0); MEAN CORPUSCULAR HGB CONC 34.2 g/dl (32.0-36.5); MEAN CORPUSCULAR VOLUME 93.2 fl (80.0-96.0); PLATELET COUNT, AUTOMATED 184 10^3/uL (150-450); WHITE BLOOD COUNT 5.4 10^3/uL (4.0-10.0)
[2021-08-27 06:40] LABS: BLOOD UREA NITROGEN 10 MG/DL (7-18); CALCIUM LEVEL 8.8 MG/DL (8.8-10.2); CARBON DIOXIDE LEVEL 34 MEQ/L (21-32); CHLORIDE LEVEL 96 MEQ/L (98-107); CREATININE FOR GFR 0.73 MG/DL (0.55-1.30); GLOMERULAR FILTRATION RATE > 60.0 (>39); GLUCOSE, FASTING 96 MG/DL (70-100); MAGNESIUM LEVEL 1.8 MG/DL (1.8-2.4); POTASSIUM SERUM 3.4 MEQ/L (3.5-5.1); SODIUM LEVEL 135 MEQ/L (136-145)
[2021-08-27] MEDS ORDERED: BUDESONIDE 180MCG INHALER (PULMICORT FLEXHALER) INH SCH (08:00)
[2021-08-27] MEDS: PANTOPRAZOLE 40MG VIAL IV SCH (08:58)
[2021-08-27] MEDS ORDERED: ENOXAPARIN 40MG/0.4ML SYRINGE (J1650 PER 10MG) SC SCH (09:00)
[2021-08-27] MEDS ORDERED: POTASSIUM CHLORIDE 10MEQ SR TABLET PO ONE (10:00)
[2021-08-27 12:23] LABS: BLOOD UREA NITROGEN 10 MG/DL (7-18); CALCIUM LEVEL 8.6 MG/DL (8.8-10.2); CARBON DIOXIDE LEVEL 31 MEQ/L (21-32); CHLORIDE LEVEL 98 MEQ/L (98-107); CREATININE FOR GFR 0.62 MG/DL (0.55-1.30); GLOMERULAR FILTRATION RATE > 60.0 (>39); GLUCOSE, FASTING 85 MG/DL (70-100); POTASSIUM SERUM 3.5 MEQ/L (3.5-5.1); SODIUM LEVEL 135 MEQ/L (136-145)
[2021-08-27] MEDS: KETOROLAC 30 MG/ML 1ML VIAL IV PRN (12:42)
[2021-08-27 14:37] VITALS: BP 137/86
== END 2021-08-27 14:43 | disposition home or self-care (01) ==
LOC: M ED 13:03 → M ED INP 13:04
PROVIDERS: ADMIT Family Medicine; ATTEND Family Medicine
DX: R11.2 Nausea with vomiting, unspecified (principal); M54.9 Dorsalgia, unspecified; G89.29 Other chronic pain; E87.1 Hypo-osmolality and hyponatremia; E87.6 Hypokalemia; U07.1 COVID-19; J45.909 Unspecified asthma, uncomplicated; I10 Essential (primary) hypertension; E78.5 Hyperlipidemia, unspecified; K21.9 Gastro-esophageal reflux disease without esophagitis; R32 Unspecified urinary incontinence; G47.33 Obstructive sleep apnea (adult) (pediatric); Z79.899 Other long term (current) drug therapy; Z79.51 Long term (current) use of inhaled steroids; Z91.041 Radiographic dye allergy status; Z88.0 Allergy status to penicillin; Z88.5 Allergy status to narcotic agent; Z88.2 Allergy status to sulfonamides; Z88.8 Allergy status to other drugs, medicaments and biological substances
CPT/HCPCS: 36415; 71046; 80047; 80048; 80076; 81001; 83690; 83735; 85025; 85027; 85610; 85730; 96361; 96365; 96366; 96372; 96375; 96376; 99285; G0378; J1650; J1885; J2270; J2405; J2765; J3010

== ENCOUNTER 2021-10-05 13:31 | Emergency (ER) | payer OTHER ==
[~2021-10-05] VITALS: Ht 162.6 cm; Wt 57.4 kg
[~2021-10-05 13:31] MED LIST changes: +ALBU2.5V10 NEB
[2021-10-05] MEDS ORDERED: NS 1,000 ML IV ONE (18:25)
[2021-10-05] MEDS ORDERED: NORCO, ANEXSIA 5/325MG TABLET (HYDROcodone/ACETAMINOPHEN) PO ONE ×2 (18:25→19:50)
[2021-10-05] MEDS ORDERED: ONDANSETRON 4MG/2ML VIAL IV ONE (18:25)
[2021-10-05] MEDS ORDERED: FLUoxetine 20MG CAP PO ONE (18:35)
[2021-10-05 18:56] LABS: BASO % 0.6 % (0.0-1.0); EOS # 0.2 10^3/uL (0.0-0.5); EOS % 2.5 % (0.0-3.0); HEMATOCRIT 42.7 % (36.0-47.0); HEMOGLOBIN 14.3 g/dl (12.0-15.5); LYMPH # 1.1 10^3/uL (1.5-5.0); LYMPH % 15.7 % (24.0-44.0); MEAN CORPUSCULAR HGB CONC 33.5 g/dl (32.0-36.5); MEAN CORPUSCULAR VOLUME 95.5 fl (80.0-96.0); MONO # 0.7 10^3/uL (0.0-0.8); MONO % 10.6 % (2.0-8.0); NEUTROPHILS # 4.7 10^3/uL (1.5-8.5); NEUTROPHILS % 70.2 % (36.0-66.0); PLATELET COUNT, AUTOMATED 250 10^3/uL (150-450); RED BLOOD COUNT 4.47 10^6/uL (4.00-5.40); WHITE BLOOD COUNT 6.7 10^3/uL (4.0-10.0)
[2021-10-05 19:18] LABS: ALBUMIN 3.9 GM/DL (3.2-5.2); ALT/SGPT 12 U/L (12-78); BILIRUBIN,DIRECT 0.1 MG/DL (0.0-0.2); BILIRUBIN,TOTAL 0.5 MG/DL (0.2-1.0); BLOOD UREA NITROGEN 8 MG/DL (7-18); CALCIUM LEVEL 9.9 MG/DL (8.8-10.2); CARBON DIOXIDE LEVEL 28 MEQ/L (21-32); CHLORIDE LEVEL 103 MEQ/L (98-107); CREATININE FOR GFR 0.72 MG/DL (0.55-1.30); GLOMERULAR FILTRATION RATE > 60.0 (>32); GLUCOSE, FASTING 110 MG/DL (70-100); LIPASE 115 U/L (73-393); POTASSIUM SERUM 3.8 MEQ/L (3.5-5.1); SODIUM LEVEL 141 MEQ/L (136-145); TOTAL PROTEIN 7.2 GM/DL (6.4-8.2)
[2021-10-05 19:20] LABS: CK-MB VALUE MASS < 1.0 NG/ML (<3.6); CPK CREATINE PHOSPHOKINASE 64 U/L (26-192); MB/CK RELATIVE INDEX 1.56 (< OR =4)
[2021-10-05 20:22] LABS: CK-MB VALUE MASS < 1.0 NG/ML (<3.6); CPK CREATINE PHOSPHOKINASE 60 U/L (26-192); MB/CK RELATIVE INDEX 1.67 (< OR =4)
[2021-10-05] MEDS ORDERED: KETOROLAC 30 MG/ML 1ML VIAL IV ONE (20:35)
[2021-10-05 21:14] VITALS: BP 152/73
== END 2021-10-05 21:16 | disposition home or self-care (01) ==
LOC: M ED 13:31
DX: F19.230 Other psychoactive substance dependence with withdrawal, uncomplicated (principal); R11.0 Nausea; E86.0 Dehydration; I10 Essential (primary) hypertension; R53.83 Other fatigue; G47.30 Sleep apnea, unspecified; E78.5 Hyperlipidemia, unspecified; F32.A Depression, unspecified; G89.29 Other chronic pain; M54.50 Low back pain, unspecified; Z88.0 Allergy status to penicillin; Z88.2 Allergy status to sulfonamides; Z88.5 Allergy status to narcotic agent; Z79.899 Other long term (current) drug therapy
CPT/HCPCS: 36415; 71046; 80048; 80076; 82550; 82553; 83690; 84484; 85025; 93005; 96361; 96374; 96375; 99284; J1885; J2405

== ENCOUNTER → 2021-10-09 | Outpatient (CLI) | payer OTHER ==
[~2021-10-09] MED LIST changes: +ISOVUE-300 61% 50ML VIAL As Ordered ONE; +LIDOCAINE 1% MDV 20ML VIAL As Ordered ONE; +methylPREDNISolone SUSP 40MG/ML 1ML VIAL (DEPO MEDROL) As Ordered ONE
== END ==
LOC: M RADPRO 12:33
PROVIDERS: ATTEND Physician Assistant
DX: M16.12 Unilateral primary osteoarthritis, left hip (principal)
CPT/HCPCS: 20610; 76000; J1030; Q9967

== ENCOUNTER → 2022-03-15 | Outpatient (CLI) | payer OTHER ==
[~2022-03-15] MED LIST changes: -ISOVUE-300 61% 50ML VIAL As Ordered ONE; +LEVO1TAB38 PO; -LEVO250T3 PO; -LIDOCAINE 1% MDV 20ML VIAL As Ordered ONE; -methylPREDNISolone SUSP 40MG/ML 1ML VIAL (DEPO MEDROL) As Ordered ONE
[2022-03-15 20:03] LABS: ALBUMIN 3.9 G/DL (3.2-5.2); ALT/SGPT 10 U/L (7.0-40); BILIRUBIN,TOTAL 0.4 MG/DL (0.3-1.2); BLOOD UREA NITROGEN 15 MG/DL (9-23); CALCIUM LEVEL 10.1 MG/DL (8.3-10.6); CHLORIDE LEVEL 96 MMOL/L (98-107); CREATININE FOR GFR 0.63 MG/DL (0.55-1.30); GLOMERULAR FILTRATION RATE > 60.0 (>32); GLUCOSE, FASTING 78 MG/DL (74-106); MAGNESIUM LEVEL 1.8 MG/DL (1.8-2.4); POTASSIUM SERUM 4.1 MMOL/L (3.5-5.1); SODIUM LEVEL 136 MMOL/L (136-145); TOTAL PROTEIN 6.6 G/DL (5.7-8.2)
[2022-03-15 20:20] LABS: CARBON DIOXIDE LEVEL 34 MMOL/L (20-31)
== END ==
LOC: M PLALAB 15:35
PROVIDERS: ATTEND Physician Assistant
DX: I10 Essential (primary) hypertension (principal)

== ENCOUNTER → 2022-07-10 | Outpatient (CLI) | payer MEDICARE | LOC: M RAD 17:00 | PROVIDERS: ATTEND Internal Medicine Pulmonary Disease | DX: J45.30 Mild persistent asthma, uncomplicated (principal) ==

== ENCOUNTER → 2022-07-26 | Outpatient (REF) | payer MEDICARE ==
[2022-07-26 17:28] LABS: PERCENT SATURATION 34.5 % (13.2-45.0)
[2022-07-26 17:51] LABS: APPEARANCE, URINE CLEAR (CLEAR); BACTERIA, URINE AUTO NEGATIVE (NEGATIVE); BILIRUBIN, URINE AUTO NEGATIVE (NEGATIVE); BLOOD, URINE BLOOD NEGATIVE (NEGATIVE); COLOR, URINE YELLOW (YELLOW); GLUCOSE, URINE (UA) AUTO NEGATIVE (NEGATIVE); KETONE, URINE AUTO NEGATIVE (NEGATIVE); LEUKOCYTE ESTERASE, URINE AUTO NEGATIVE (NEGATIVE); NITRITE, URINE AUTO NEGATIVE (NEGATIVE); PROTEIN, URINE AUTO NEGATIVE (NEGATIVE); RBC, URINE AUTO 2 /HPF (0-3); SQUAMOUS EPITHELIAL CELL UR AU 0 /HPF (0-6); UROBILINOGEN, URINE AUTO 0.2 mg/dL (0.0-2.0); WBC, URINE AUTO 0 /HPF (0-3)
[2022-07-26 18:04] LABS: INR 0.92; PROTHROMBIN TIME 12.6 SECONDS (12.5-14.5)
== END ==
LOC: M LAB REF 16:04
PROVIDERS: ATTEND Internal Medicine
DX: Z01.818 Encounter for other preprocedural examination (principal); Z79.01 Long term (current) use of anticoagulants; D50.9 Iron deficiency anemia, unspecified

== ENCOUNTER → 2022-10-08 | Outpatient (CLI) | payer MEDICARE ==
[~2022-10-08] MED LIST changes: +FLUT50SP17; -FLUTISP
[2022-10-08 18:05] LABS: BLOOD UREA NITROGEN 14 MG/DL (9-23); CALCIUM LEVEL 9.3 MG/DL (8.3-10.6); CARBON DIOXIDE LEVEL 32 MMOL/L (20-31); CHLORIDE LEVEL 98 MMOL/L (98-107); CREATININE FOR GFR 0.66 MG/DL (0.55-1.30); GLOMERULAR FILTRATION RATE > 60.0 (>32); GLUCOSE, FASTING 83 MG/DL (74-106); SODIUM LEVEL 136 MMOL/L (136-145)
== END ==
LOC: M WUC 14:49
PROVIDERS: ATTEND Physician Assistant
DX: I10 Essential (primary) hypertension (principal)

== ENCOUNTER → 2022-10-18 | Outpatient (CLI) | payer MEDICARE ==
[2022-10-18 17:59] LABS: BLOOD UREA NITROGEN 14 MG/DL (9-23); CALCIUM LEVEL 9.9 MG/DL (8.3-10.6); CARBON DIOXIDE LEVEL 34 MMOL/L (20-31); CHLORIDE LEVEL 97 MMOL/L (98-107); GLOMERULAR FILTRATION RATE > 60.0 (>32); GLUCOSE, FASTING 80 MG/DL (74-106); POTASSIUM SERUM 4.7 MMOL/L (3.5-5.1); SODIUM LEVEL 134 MMOL/L (136-145)
== END ==
LOC: M WUC 13:38
PROVIDERS: ATTEND Physician Assistant
DX: I10 Essential (primary) hypertension (principal)

== ENCOUNTER 2022-11-08 12:06 | Inpatient (IN) | payer MEDICARE ==
[~2022-11-08] VITALS: Ht 160 cm; Wt 59.6 kg
[2022-11-08] MEDS ORDERED: ACETAMINOPHEN 500 MG TAB PO ONE (12:35)
[2022-11-08 13:04] LABS: BASO % 0.4 % (0.0-1.0); EOS # 0.1 10^3/uL (0.0-0.5); EOS % 0.8 % (0.0-3.0); HEMATOCRIT 46.2 % (36.0-47.0); HEMOGLOBIN 15.5 g/dl (12.0-15.5); LYMPH # 0.7 10^3/uL (1.5-5.0); LYMPH % 6.5 % (24.0-44.0); MEAN CORPUSCULAR HEMOGLOBIN 31.3 pg (27.0-33.0); MEAN CORPUSCULAR HGB CONC 33.5 g/dl (32.0-36.5); MEAN CORPUSCULAR VOLUME 93.3 fl (80.0-96.0); MONO % 9.8 % (2.0-8.0); NEUTROPHILS # 8.3 10^3/uL (1.5-8.5); NEUTROPHILS % 82.1 % (36.0-66.0); PLATELET COUNT, AUTOMATED 179 10^3/uL (150-450); RED BLOOD COUNT 4.95 10^6/uL (4.00-5.40); WHITE BLOOD COUNT 10.1 10^3/uL (4.0-10.0)
[2022-11-08 13:28] LABS: CK-MB VALUE MASS < 1.0 NG/ML (<3.6)
[2022-11-08 13:30] LABS: LIPASE 23 U/L (12-53)
[2022-11-08 13:32] LABS: THYROID STIMULATING HORMONE 1.261 uIU/ML (0.55-4.78)
[2022-11-08 13:33] LABS: ALBUMIN 4.2 G/DL (3.2-5.2); ALKALINE PHOSPHATASE 99 U/L (46-116); ALT/SGPT 12 U/L (7.0-40); AST/SGOT < 8 U/L (<34); BILIRUBIN,DIRECT 0.2 MG/DL (<0.4); BILIRUBIN,TOTAL 0.7 MG/DL (0.3-1.2); BLOOD UREA NITROGEN 10 MG/DL (9-23); CALCIUM LEVEL 9.3 MG/DL (8.3-10.6); CARBON DIOXIDE LEVEL 30 MMOL/L (20-31); CHLORIDE LEVEL 96 MMOL/L (98-107); CREATININE FOR GFR 0.58 MG/DL (0.55-1.30); GLOMERULAR FILTRATION RATE > 60.0 (>32); GLUCOSE, FASTING 106 MG/DL (74-106); POTASSIUM SERUM 3.2 MMOL/L (3.5-5.1); SODIUM LEVEL 135 MMOL/L (136-145)
[2022-11-08 13:35] LABS: CPK CREATINE PHOSPHOKINASE 78 U/L (34-145); MB/CK RELATIVE INDEX 1.28 (< OR =4)
[2022-11-08] MEDS ORDERED: diphenhydrAMINE 50MG/ML VIAL IV STA (13:43)
[2022-11-08] MEDS ORDERED: methylPREDNISolone 125MG 2ML VIAL IV ONE (13:45)
[2022-11-08] MEDS ORDERED: ISOVUE-370 76% 100ML VIAL As Ordered ONE (13:47)
[2022-11-08] MEDS: POTASSIUM CHLORIDE 10MEQ SR TABLET PO ONE ×2 (14:00→14:12)
[2022-11-08] MEDS ORDERED: POTASSIUM CHLORIDE 10% LIQ 20MEQ/15ML UDC PO ONE (14:25)
[2022-11-08] MEDS ORDERED: KETOROLAC 30 MG/ML 1ML VIAL IV ONE (14:55)
[2022-11-08 15:02] LABS: ABG BASE EXCESS 3.5 (-2.0-2.0); ABG HCO3 28.4 MMOL/L (22.0-26.0); ABG O2 SATURATION 92.8 % (95.0-99.0); ABG PARTIAL PRESSURE CO2 44.1 mmHg (35.0-45.0); ABG PARTIAL PRESSURE O2 62.6 mmHg (75.0-100.0); ABG STANDARD HCO3 27.4 MMOL/L. (22.0-26.0); ABG TOTAL CO2 29.8 MMOL/L (23.0-31.0); ABG pH (ARTERIAL) 7.427 UNITS (7.350-7.450)
[2022-11-08 15:51] LABS: ETHYL ALCOHOL (ETHANOL) < 0.003 % (0.000-0.010)
[2022-11-08 16:36] LABS: AMPHETAMINES LEVEL URINE NEGATIVE (NEGATIVE); BARBITURATES URINE NEGATIVE (NEGATIVE); BENZODIAZEPINES URINE NEGATIVE (NEGATIVE); CANNABINOIDS URINE NEGATIVE (NEGATIVE); COCAINE METABOLITE URINE NEGATIVE (NEGATIVE); METHADONE URINE NEGATIVE (NEGATIVE); PHENCYCLIDINE URINE NEGATIVE (NEGATIVE)
[2022-11-08 16:41] LABS: OPIATES URINE POSITIVE (NEGATIVE)
[2022-11-08] MEDS ORDERED: LevoFLOXacin IV 750 MG in IV 1 EA IV ONE (17:00)
[2022-11-08] MEDS ORDERED: MED REC IN PROGRESS XX SCH (17:40)
[2022-11-08] MEDS ORDERED: LOSA50TA28 PO (18:47)
[2022-11-08] MEDS ORDERED: FLUT22IN INH (18:47)
[2022-11-08] MEDS ORDERED: ONDANSETRON 4MG TAB PO PRN (18:50)
[2022-11-08] MEDS ORDERED: ALBUTEROL SULFATE 2.5MG/0.5ML INH NEB SOLN NEB PRN (18:50)
[2022-11-08] MEDS ORDERED: HOME MED LIST COMPLETE! XX SCH (18:55)
[2022-11-08 20:30] VITALS: BP 168/84; TEMP 99; O2SAT 95
[2022-11-08] MEDS: NS 1,000 ML IV SCH (20:43)
[2022-11-08] MEDS: NORCO, ANEXSIA 5/325MG TABLET (HYDROcodone/ACETAMINOPHEN) PO PRN (20:44)
[2022-11-08 21:00] VITALS: O2SAT 97
[2022-11-08] MEDS ORDERED: LOSARTAN 50MG TABLET PO SCH (21:00)
[2022-11-08 22:00] VITALS: O2SAT 94
[2022-11-08] MEDS: tiZANidine 4 MG TAB PO PRN (22:06)
[2022-11-08 23:00] VITALS: O2SAT 94
[2022-11-08] MEDS: GABAPENTIN 300 MG CAP PO SCH (23:57)
[2022-11-09] VITALS (13 sets, daily range): BP systolic 62–159; BP diastolic 38–90; TEMP 97–99.2; O2SAT 93–98
[2022-11-09] MEDS ORDERED: NS 1,000 ML IV ONE (01:10)
[2022-11-09 06:07] LABS: HEMOGLOBIN 13.9 g/dl (12.0-15.5); LYMPH # 0.7 10^3/uL (1.5-5.0); MEAN CORPUSCULAR HEMOGLOBIN 31.3 pg (27.0-33.0); MEAN CORPUSCULAR HGB CONC 33.1 g/dl (32.0-36.5); MEAN CORPUSCULAR VOLUME 94.6 fl (80.0-96.0); MONO # 0.4 10^3/uL (0.0-0.8); MONO % 4.3 % (2.0-8.0); NEUTROPHILS # 8.4 10^3/uL (1.5-8.5); NEUTROPHILS % 87.7 % (36.0-66.0); PLATELET COUNT, AUTOMATED 163 10^3/uL (150-450); RED BLOOD COUNT 4.44 10^6/uL (4.00-5.40); WHITE BLOOD COUNT 9.6 10^3/uL (4.0-10.0)
[2022-11-09] MEDS: GABAPENTIN 300 MG CAP PO SCH ×4 (06:29→23:53)
[2022-11-09 06:42] LABS: BLOOD UREA NITROGEN 13 MG/DL (9-23); CARBON DIOXIDE LEVEL 29 MMOL/L (20-31); CHLORIDE LEVEL 99 MMOL/L (98-107); CREATININE FOR GFR 0.68 MG/DL (0.55-1.30); GLOMERULAR FILTRATION RATE > 60.0 (>32); GLUCOSE, FASTING 136 MG/DL (74-106); MAGNESIUM LEVEL 1.6 MG/DL (1.8-2.4); POTASSIUM SERUM 3.3 MMOL/L (3.5-5.1); SODIUM LEVEL 135 MMOL/L (136-145)
[2022-11-09] MEDS ORDERED: MAG SULF 1GM/100ML (MAG RUN) 1 GM in IV 1 EA IV ONE (07:00)
[2022-11-09] MEDS: FLUTICASONE HFA 220 MCG 12 GM INHALER (FLOVENT) INH SCH ×2 (09:00→20:17)
[2022-11-09] MEDS ORDERED: POTASSIUM CHLORIDE 10MEQ SR TABLET PO ONE (09:00)
[2022-11-09] MEDS ORDERED: CHLORTHALIDONE 12.5MG PER 1/2 TABLET PO SCH (09:00)
[2022-11-09] MEDS: BUDESONIDE 180MCG INHALER (PULMICORT FLEXHALER) INH SCH ×2 (09:01→20:17)
[2022-11-09] MEDS: MAG SULF 1GM/100ML (MAG RUN) 1 GM in IV 1 EA IV SCH ×2 (09:35→11:42)
[2022-11-09] MEDS: NS 1,000 ML IV SCH (09:35)
[2022-11-09] MEDS: ENOXAPARIN 40MG/0.4ML SYRINGE (J1650 PER 10MG) SC SCH (09:36)
[2022-11-09] MEDS: tiZANidine 4 MG TAB PO PRN (09:37)
[2022-11-09] MEDS: NORCO, ANEXSIA 5/325MG TABLET (HYDROcodone/ACETAMINOPHEN) PO PRN ×3 (09:38→23:04)
[2022-11-09] MEDS ORDERED: MIRALAX *UNIT DOSE* 17GM PACKET PO PRN (09:40)
[2022-11-09] MEDS ORDERED: SENNA 8.6 MG TAB (SENOKOT) PO PRN (11:10)
[2022-11-09] MEDS ORDERED: MOM 30ML SUSPENSION UDC PO PRN (11:10)
[2022-11-09] MEDS ORDERED: DOCUSATE SODIUM 100MG CAPSULE PO PRN (11:10)
[2022-11-09] MEDS ORDERED: MAGNESIUM SULFATE 1GM/100ML D5W BAG (10MG/ML) As Ordered ONE (11:35)
[2022-11-09] MEDS: guaiFENesin 200 MG TAB PO SCH ×2 (13:35→20:36)
[2022-11-09] MEDS ORDERED: NS 500 ML IV ONE (13:35)
[2022-11-09] MEDS ORDERED: LevoFLOXacin 750 MG TABLET PO SCH (18:00)
[2022-11-09] MEDS ORDERED: LevoFLOXacin IV 750 MG in IV 1 EA IV SCH (18:00)
[2022-11-09] MEDS ORDERED: ACETAMINOPHEN TAB 650MG DOSE (2X325MG) PO ONE (21:05)
[2022-11-10 02:45] VITALS: BP 178/92
[2022-11-10] MEDS ORDERED: ONDANSETRON 4MG ORAL DISINTEGRATING TAB PO ONE (03:00)
[2022-11-10 03:09] VITALS: BP 178/92
[2022-11-10 04:00] VITALS: BP 132/94; TEMP 97.7; O2SAT 97
[2022-11-10 05:33] LABS: BASO % 0.1 % (0.0-1.0); EOS # 0.1 10^3/uL (0.0-0.5); EOS % 0.6 % (0.0-3.0); HEMATOCRIT 42.9 % (36.0-47.0); HEMOGLOBIN 14.4 g/dl (12.0-15.5); LYMPH # 1.3 10^3/uL (1.5-5.0); LYMPH % 8.4 % (24.0-44.0); MEAN CORPUSCULAR HEMOGLOBIN 31.6 pg (27.0-33.0); MEAN CORPUSCULAR HGB CONC 33.6 g/dl (32.0-36.5); MEAN CORPUSCULAR VOLUME 94.3 fl (80.0-96.0); MONO # 1.4 10^3/uL (0.0-0.8); MONO % 9.3 % (2.0-8.0); NEUTROPHILS # 12.2 10^3/uL (1.5-8.5); NEUTROPHILS % 81.1 % (36.0-66.0); PLATELET COUNT, AUTOMATED 198 10^3/uL (150-450); RED BLOOD COUNT 4.55 10^6/uL (4.00-5.40); WHITE BLOOD COUNT 15.1 10^3/uL (4.0-10.0)
[2022-11-10 05:55] LABS: BLOOD UREA NITROGEN 13 MG/DL (9-23); CARBON DIOXIDE LEVEL 26 MMOL/L (20-31); CHLORIDE LEVEL 101 MMOL/L (98-107); CREATININE FOR GFR 0.61 MG/DL (0.55-1.30); GLOMERULAR FILTRATION RATE > 60.0 (>32); GLUCOSE, FASTING 106 MG/DL (74-106); POTASSIUM SERUM 3.9 MMOL/L (3.5-5.1); SODIUM LEVEL 135 MMOL/L (136-145)
[2022-11-10] MEDS: GABAPENTIN 300 MG CAP PO SCH (06:28)
[2022-11-10] MEDS: NORCO, ANEXSIA 5/325MG TABLET (HYDROcodone/ACETAMINOPHEN) PO PRN (06:33)
[2022-11-10 08:00] VITALS: BP 134/77; TEMP 97.6; O2SAT 98
[2022-11-10] MEDS ORDERED: LEVO1TAB40 PO (08:21)
[2022-11-10] MEDS ORDERED: AMLO1TAB25 PO (08:21)
[2022-11-10] MEDS: ENOXAPARIN 40MG/0.4ML SYRINGE (J1650 PER 10MG) SC SCH (08:48)
[2022-11-10] MEDS: guaiFENesin 200 MG TAB PO SCH (08:48)
[2022-11-10] MEDS: BUDESONIDE 180MCG INHALER (PULMICORT FLEXHALER) INH SCH (09:08)
[2022-11-10] MEDS: FLUTICASONE HFA 220 MCG 12 GM INHALER (FLOVENT) INH SCH (09:10)
[2022-11-10] MEDS ORDERED: LevoFLOXacin 500 MG TABLET PO SCH (18:00)
== END 2022-11-10 11:06 | disposition home health service (06) | DRG 195 ==
LOC: M ED 12:06 → EDBD 12:06 → M ED INP 18:35 → M PCU 20:22
PROVIDERS: ADMIT Internal Medicine; ATTEND Internal Medicine
DX: J18.9 Pneumonia, unspecified organism (principal); J45.909 Unspecified asthma, uncomplicated; E78.5 Hyperlipidemia, unspecified; I10 Essential (primary) hypertension; G47.33 Obstructive sleep apnea (adult) (pediatric); K21.9 Gastro-esophageal reflux disease without esophagitis; R11.0 Nausea; M54.9 Dorsalgia, unspecified; E87.6 Hypokalemia; I95.9 Hypotension, unspecified; K59.00 Constipation, unspecified; R40.0 Somnolence; G89.29 Other chronic pain; Z86.711 Personal history of pulmonary embolism; Z95.828 Presence of other vascular implants and grafts; Z96.651 Presence of right artificial knee joint; Z90.49 Acquired absence of other specified parts of digestive tract; Z79.899 Other long term (current) drug therapy; Z88.0 Allergy status to penicillin; Z88.5 Allergy status to narcotic agent; Z88.8 Allergy status to other drugs, medicaments and biological substances; Z88.2 Allergy status to sulfonamides; Z91.041 Radiographic dye allergy status

== ENCOUNTER → 2022-12-07 | Outpatient (CLI) | payer MEDICARE ==
[~2022-12-07] MED LIST changes: +AMLO1TAB25 PO; +FLUT22IN INH; -GABA-283 PO; +GABA-284 PO; +LEVO1TAB40 PO; +LOSA50TA28 PO
== END ==
LOC: M WUC 14:46
PROVIDERS: ATTEND Physician Assistant Medical
DX: J18.9 Pneumonia, unspecified organism (principal)

== ENCOUNTER → 2023-03-26 | Outpatient (CLI) | payer MEDICARE, OTHER | LOC: M WUC 14:50 | PROVIDERS: ATTEND Physician Assistant | DX: R05.9 Cough, unspecified (principal); I73.9 Peripheral vascular disease, unspecified ==

== ENCOUNTER → 2023-03-26 | Outpatient (REF) | payer MEDICARE, OTHER ==
[2023-03-26 20:33] LABS: BLOOD UREA NITROGEN 15 MG/DL (9-23); CREATININE FOR GFR 0.68 MG/DL (0.55-1.30); GLOMERULAR FILTRATION RATE > 60.0 (>32)
== END ==
LOC: M WUC 16:13
PROVIDERS: ATTEND Physician Assistant
DX: I73.9 Peripheral vascular disease, unspecified (principal)

== ENCOUNTER → 2023-04-04 | Outpatient (CLI) | payer MEDICARE ==
[~2023-04-04] MED LIST changes: -FLUT50SP17; +FLUTISP
== END ==
LOC: M PLAIMG 14:08
PROVIDERS: ATTEND Surgery Vascular Surgery
DX: I73.9 Peripheral vascular disease, unspecified (principal)

== ENCOUNTER 2023-05-11 11:31 | Inpatient (IN) | payer MEDICARE, OTHER ==
[~2023-05-11] VITALS: Ht 162.6 cm; Wt 59.2 kg
[2023-05-11] MEDS ORDERED: NS 500 ML IV ONE (11:40)
[2023-05-11 12:29] LABS: BASO # 0.1 10^3/uL (0.0-0.2); BASO % 0.4 % (0.0-1.0); EOS % 0.2 % (0.0-3.0); HEMATOCRIT 59.5 % (36.0-47.0); HEMOGLOBIN 19.4 g/dl (12.0-15.5); LYMPH # 1.4 10^3/uL (1.5-5.0); LYMPH % 8.1 % (24.0-44.0); MEAN CORPUSCULAR HEMOGLOBIN 30.7 pg (27.0-33.0); MEAN CORPUSCULAR HGB CONC 32.6 g/dl (32.0-36.5); MEAN CORPUSCULAR VOLUME 94.1 fl (80.0-96.0); MONO # 1.3 10^3/uL (0.0-0.8); MONO % 7.7 % (2.0-8.0); NEUTROPHILS # 14.1 10^3/uL (1.5-8.5); PLATELET COUNT, AUTOMATED 287 10^3/uL (150-450); RED BLOOD COUNT 6.32 10^6/uL (4.00-5.40)
[2023-05-11] MEDS ORDERED: ONDANSETRON 4MG 2ML VIAL IV ONE (12:35)
[2023-05-11 12:45] LABS: INR 1.02; PROTHROMBIN TIME 13.1 SECONDS (12.5-14.5)
[2023-05-11 12:46] LABS: PARTIAL THROMBOPLASTIN TIME 31.1 SECONDS (24.8-34.2)
[2023-05-11] MEDS ORDERED: NS 1,360 ML in IV 1 EA IV ONE (12:50)
[2023-05-11] MEDS ORDERED: LevoFLOXacin IV 750 MG in IV 1 EA IV ONE (12:50)
[2023-05-11 12:57] LABS: AMYLASE 44 U/L (30-118)
[2023-05-11] MEDS ORDERED: fentaNYL 100 MCG/2 ML INJECTION IV PRN ×2 (13:00→19:45)
[2023-05-11 13:01] LABS: ALBUMIN 3.8 G/DL (3.2-5.2); ALKALINE PHOSPHATASE 108 U/L (46-116); ALT/SGPT 17 U/L (7.0-40); AST/SGOT 46 U/L (<34); BILIRUBIN,DIRECT 0.2 MG/DL (<0.4); BILIRUBIN,TOTAL 1.1 MG/DL (0.3-1.2); BLOOD UREA NITROGEN 18 MG/DL (9-23); CALCIUM LEVEL 9.1 MG/DL (8.3-10.6); CARBON DIOXIDE LEVEL 23 MMOL/L (20-31); CHLORIDE LEVEL 98 MMOL/L (98-107); CK-MB VALUE MASS 1.1 NG/ML (<3.6); CPK CREATINE PHOSPHOKINASE 118 U/L (34-145); CREATININE FOR GFR 0.74 MG/DL (0.55-1.30); GLOMERULAR FILTRATION RATE > 60.0 (>32); GLUCOSE, FASTING 211 MG/DL (74-106); LIPASE 30 U/L (12-53); MB/CK RELATIVE INDEX 0.93 (< OR =4); POTASSIUM SERUM 4.6 MMOL/L (3.5-5.1); RSV AMPLIFICATION NEGATIVE (NEGATIVE); SODIUM LEVEL 134 MMOL/L (136-145); TOTAL PROTEIN 7.2 G/DL (5.7-8.2)
[2023-05-11 13:34] LABS: CK-MB VALUE MASS < 1.0 NG/ML (<3.6)
[2023-05-11 13:38] LABS: CPK CREATINE PHOSPHOKINASE 94 U/L (34-145); MB/CK RELATIVE INDEX 1.06 (< OR =4)
[2023-05-11] MEDS ORDERED: LIDOCAINE 2% 5ML JELLY UROJET TOP ONE ×2 (14:05→17:00)
[2023-05-11 15:24] LABS: BASO # 0.1 10^3/uL (0.0-0.2); BASO % 0.3 % (0.0-1.0); EOS % 0.1 % (0.0-3.0); LYMPH # 1.3 10^3/uL (1.5-5.0); LYMPH % 7.3 % (24.0-44.0); MEAN CORPUSCULAR HEMOGLOBIN 31.4 pg (27.0-33.0); MEAN CORPUSCULAR HGB CONC 33.1 g/dl (32.0-36.5); MEAN CORPUSCULAR VOLUME 94.9 fl (80.0-96.0); MONO # 1.5 10^3/uL (0.0-0.8); MONO % 8.5 % (2.0-8.0); NEUTROPHILS # 15.1 10^3/uL (1.5-8.5); NEUTROPHILS % 83.3 % (36.0-66.0); PLATELET COUNT, AUTOMATED 322 10^3/uL (150-450); RED BLOOD COUNT 5.89 10^6/uL (4.00-5.40); WHITE BLOOD COUNT 18.1 10^3/uL (4.0-10.0)
[2023-05-11 15:25] LABS: HEMATOCRIT 55.9 % (36.0-47.0); HEMOGLOBIN 18.5 g/dl (12.0-15.5)
[2023-05-11] MEDS ORDERED: fentaNYL 100 MCG/2 ML INJECTION IV ONE (15:30)
[2023-05-11 15:49] LABS: ABG BASE EXCESS -7.9 (-2.0-2.0); ABG HCO3 16.3 MMOL/L (22.0-26.0); ABG PARTIAL PRESSURE CO2 31.5 mmHg (35.0-45.0); ABG PARTIAL PRESSURE O2 63.9 mmHg (75.0-100.0); ABG STANDARD HCO3 18.2 MMOL/L. (22.0-26.0); ABG TOTAL CO2 17.3 MMOL/L (23.0-31.0); ABG pH (ARTERIAL) 7.333 UNITS (7.350-7.450)
[2023-05-11] MEDS ORDERED: diphenhydrAMINE 50MG/ML VIAL IV ONE (16:40)
[2023-05-11] MEDS ORDERED: methylPREDNISolone 125MG 2ML VIAL IV ONE (16:40)
[2023-05-11] MEDS ORDERED: FAMOTIDINE IV BAG 20 MG in IV 1 EA IV ONE (16:40)
[2023-05-11] MEDS ORDERED: ERTAPENEM SODIUM 1 GM in NS MINI-BAG PLUS 50 ML IV ONE (16:55)
[2023-05-11] MEDS ORDERED: NS 1,000 ML IV ONE (17:00)
[2023-05-11] MEDS ORDERED: fentaNYL 100 MCG/2 ML INJECTION As Ordered ONE ×2 (17:21→18:48)
[2023-05-11] MEDS ORDERED: LIDOCAINE 1% SDV 30ML VIAL As Ordered ONE (17:21)
[2023-05-11] MEDS ORDERED: LIDOCAINE 2% 100MG/5ML SDV (FOR ANES.) As Ordered ONE (17:21)
[2023-05-11] MEDS ORDERED: ROCURONIUM BROMIDE 50MG/5ML VIAL As Ordered ONE ×2 (17:21→18:36)
[2023-05-11] MEDS ORDERED: propofoL 200 MG/20 ML VIAL As Ordered ONE (17:21)
[2023-05-11] MEDS ORDERED: ONDANSETRON 4MG 2ML VIAL As Ordered ONE (17:22)
[2023-05-11] MEDS ORDERED: VASOPRESSIN INJ 20UNITS/ML 1ML VIAL As Ordered ONE (18:12)
[2023-05-11] MEDS ORDERED: PHENYLEPHRINE 10MG/ML 1ML VIAL As Ordered ONE (18:22)
[2023-05-11] MEDS ORDERED: PHENYLephrine 500MCG 5ML (100MCG/ML) SYRINGE As Ordered ONE (18:32)
[2023-05-11] MEDS ORDERED: ePHEDrine SULFATE 25 MG/5 ML(5MG/ML) SYRINGE As Ordered ONE (18:33)
[2023-05-11] MEDS ORDERED: ACETAMINOPHEN 1000MG 100ML IV BAG As Ordered ONE (18:38)
[2023-05-11] MEDS ORDERED: SUGAMMADEX SODIUM 500 MG/5 ML VIAL (BRIDION) As Ordered ONE (19:21)
[2023-05-11] MEDS ORDERED: MEPERIDINE 25 MG/ML 1ML VIAL IV PRN (19:45)
[2023-05-11] MEDS ORDERED: HYDROMORPHONE HCL 0.5 MG/ 0.5 ML SYRINGE IV PRN ×2 (19:45→21:30)
[2023-05-11] MEDS ORDERED: oxyCODONE 5MG TAB PO PRN (19:45)
[2023-05-11 20:47] LABS: BASO % 0.2 % (0.0-1.0); EOS % 0.1 % (0.0-3.0); HEMATOCRIT 45.1 % (36.0-47.0); LYMPH # 1.1 10^3/uL (1.5-5.0); LYMPH % 8.1 % (24.0-44.0); MEAN CORPUSCULAR HEMOGLOBIN 31.6 pg (27.0-33.0); MEAN CORPUSCULAR HGB CONC 33.7 g/dl (32.0-36.5); MEAN CORPUSCULAR VOLUME 93.8 fl (80.0-96.0); MONO # 0.9 10^3/uL (0.0-0.8); MONO % 6.3 % (2.0-8.0); NEUTROPHILS # 11.7 10^3/uL (1.5-8.5); NEUTROPHILS % 84.9 % (36.0-66.0); PLATELET COUNT, AUTOMATED 235 10^3/uL (150-450); RED BLOOD COUNT 4.81 10^6/uL (4.00-5.40); WHITE BLOOD COUNT 13.8 10^3/uL (4.0-10.0)
[2023-05-11 20:52] LABS: HEMOGLOBIN 15.2 g/dl (12.0-15.5)
[2023-05-11] MEDS ORDERED: ARNU1INH INH (20:57)
[2023-05-11] MEDS ORDERED: ZINC220CA PO (20:57)
[2023-05-11] MEDS ORDERED: CHLO125TA PO (20:57)
[2023-05-11] MEDS ORDERED: HYDR-3713 PO (20:58)
[2023-05-11] MEDS ORDERED: HOME MED LIST COMPLETE! XX SCH ×2 (21:00→21:15)
[2023-05-11 21:03] VITALS: BP 111/71; TEMP 97.2; O2SAT 97
[2023-05-11 21:04] LABS: BLOOD UREA NITROGEN 16 MG/DL (9-23); CALCIUM LEVEL 6.4 MG/DL (8.3-10.6); CARBON DIOXIDE LEVEL 21 MMOL/L (20-31); CHLORIDE LEVEL 110 MMOL/L (98-107); CREATININE FOR GFR 0.69 MG/DL (0.55-1.30); GLOMERULAR FILTRATION RATE > 60.0 (>32); GLUCOSE, FASTING 134 MG/DL (74-106); POTASSIUM SERUM 3.2 MMOL/L (3.5-5.1); SODIUM LEVEL 139 MMOL/L (136-145)
[2023-05-11] MEDS ORDERED: DEXA0.5E2 SSP (21:14)
[2023-05-11 21:15] VITALS: BP 119/63; O2SAT 97
[2023-05-11 22:00] VITALS: BP_SYST 105; BP_SYST 129; BP_DIAS 68; BP_DIAS 71; O2SAT 98
[2023-05-11 23:00] VITALS: BP_SYST 129; BP_SYST 136; BP_DIAS 63; BP_DIAS 76; O2SAT 99
[2023-05-11] MEDS: KCL 20MEQ IN 100ML SWI (KRUN) 20 MEQ in IV 1 EA IV SCH ×2 (23:24)
[2023-05-12] VITALS (15 sets, daily range): BP systolic 69–151; BP diastolic 50–68; TEMP 96.8–98.9; O2SAT 91–98
[2023-05-12] MEDS: KCL 20MEQ IN 100ML SWI (KRUN) 20 MEQ in IV 1 EA IV SCH ×2 (00:20)
[2023-05-12] MEDS: D5W/0.45% SODIUM CHLORIDE 1,000 ML IV SCH ×4 (01:33→23:42)
[2023-05-12] MEDS: HYDROMORPHONE HCL 0.5 MG/ 0.5 ML SYRINGE IV PRN ×4 (04:25→21:28)
[2023-05-12 04:45] LABS: BASO % 0.1 % (0.0-1.0); HEMATOCRIT 46.2 % (36.0-47.0); HEMOGLOBIN 15.4 g/dl (12.0-15.5); LYMPH % 6.9 % (24.0-44.0); MEAN CORPUSCULAR HEMOGLOBIN 30.9 pg (27.0-33.0); MEAN CORPUSCULAR HGB CONC 33.3 g/dl (32.0-36.5); MEAN CORPUSCULAR VOLUME 92.8 fl (80.0-96.0); MONO % 6.5 % (2.0-8.0); NEUTROPHILS # 12.9 10^3/uL (1.5-8.5); NEUTROPHILS % 86.1 % (36.0-66.0); PLATELET COUNT, AUTOMATED 263 10^3/uL (150-450); RED BLOOD COUNT 4.98 10^6/uL (4.00-5.40)
[2023-05-12 05:11] LABS: BLOOD UREA NITROGEN 15 MG/DL (9-23); CALCIUM LEVEL 7.4 MG/DL (8.3-10.6); CARBON DIOXIDE LEVEL 22 MMOL/L (20-31); CHLORIDE LEVEL 108 MMOL/L (98-107); CREATININE FOR GFR 0.67 MG/DL (0.55-1.30); GLOMERULAR FILTRATION RATE > 60.0 (>32); GLUCOSE, FASTING 218 MG/DL (74-106); MAGNESIUM LEVEL 1.4 MG/DL (1.8-2.4); POTASSIUM SERUM 3.9 MMOL/L (3.5-5.1); SODIUM LEVEL 138 MMOL/L (136-145)
[2023-05-12] MEDS: MAG SULF 1GM/100ML (MAG RUN) 1 GM in IV 1 EA IV SCH ×2 (06:17→08:46)
[2023-05-12] MEDS: CHLORASEPTIC SPRAY MT PRN ×4 (08:42→18:25)
[2023-05-12 11:25] LABS: CK-MB VALUE MASS 1.4 NG/ML (<3.6)
[2023-05-12 11:30] LABS: MB/CK RELATIVE INDEX 1.45 (< OR =4)
[2023-05-12] MEDS ORDERED: ONDANSETRON 4MG 2ML VIAL As Ordered ONE (14:11)
[2023-05-12] MEDS: ENOXAPARIN 40MG/0.4ML SYRINGE (J1650 PER 10MG) SC SCH (14:15)
[2023-05-12] MEDS: ONDANSETRON 4MG 2ML VIAL IV PRN ×2 (14:15→21:27)
[2023-05-12] MEDS: ERTAPENEM SODIUM 1 GM in NS MINI-BAG PLUS 50 ML IV SCH (16:53)
[2023-05-13] VITALS (8 sets, daily range): BP systolic 116–153; BP diastolic 57–68; TEMP 98–100.5; O2SAT 84–97
[2023-05-13] MEDS: ONDANSETRON 4MG 2ML VIAL IV PRN ×2 (03:35→09:58)
[2023-05-13] MEDS: HYDROMORPHONE HCL 0.5 MG/ 0.5 ML SYRINGE IV PRN ×2 (03:36→20:56)
[2023-05-13 06:29] LABS: MEAN CORPUSCULAR HEMOGLOBIN 30.9 pg (27.0-33.0); MEAN CORPUSCULAR HGB CONC 33.6 g/dl (32.0-36.5); MEAN CORPUSCULAR VOLUME 91.9 fl (80.0-96.0); PLATELET COUNT, AUTOMATED 195 10^3/uL (150-450); RED BLOOD COUNT 3.59 10^6/uL (4.00-5.40); WHITE BLOOD COUNT 7.1 10^3/uL (4.0-10.0)
[2023-05-13 06:37] LABS: HEMOGLOBIN 11.1 g/dl (12.0-15.5)
[2023-05-13 06:43] LABS: ATYPICAL LYMPH 2 % (0-5); EOSINOPHILS 1 % (0-3); LYMPHOCYTES 12 % (16-44); MONOCYTES 8 % (0-5); NEUTROPHILS 77 % (28-66)
[2023-05-13 06:44] LABS: ANISOCYTOSIS 1+; BLOOD UREA NITROGEN 12 MG/DL (9-23); CALCIUM LEVEL 7.4 MG/DL (8.3-10.6); CARBON DIOXIDE LEVEL 29 MMOL/L (20-31); CHLORIDE LEVEL 104 MMOL/L (98-107); CREATININE FOR GFR 0.62 MG/DL (0.55-1.30); GLOMERULAR FILTRATION RATE > 60.0 (>32); GLUCOSE, FASTING 134 MG/DL (74-106); MAGNESIUM LEVEL 1.7 MG/DL (1.8-2.4); PLATELET ESTIMATE NORMAL (NORMAL); POIKILOCYTOSIS 1+; POLYCHROMASIA 1+; POTASSIUM SERUM 3.6 MMOL/L (3.5-5.1); SODIUM LEVEL 135 MMOL/L (136-145)
[2023-05-13] MEDS ORDERED: HYDROMORPHONE HCL 0.5 MG/ 0.5 ML SYRINGE IV ONE (08:20)
[2023-05-13] MEDS ORDERED: MAG SULF 1GM/100ML (MAG RUN) 1 GM in IV 1 EA IV ONE (09:00)
[2023-05-13] MEDS: D5W/0.45% SODIUM CHLORIDE 1,000 ML IV SCH ×2 (09:50→22:02)
[2023-05-13] MEDS: ENOXAPARIN 40MG/0.4ML SYRINGE (J1650 PER 10MG) SC SCH (09:50)
[2023-05-13] MEDS ORDERED: GLUCAGON INJ 1MG VIAL SC PRN (13:25)
[2023-05-13] MEDS ORDERED: DEXTROSE 50% 50ML SYRINGE IV PRN (13:25)
[2023-05-13] MEDS ORDERED: GLUCOSE 4GM CHEW TABLET PO PRN (13:25)
[2023-05-13] MEDS ORDERED: KETOROLAC 30 MG/ML 1ML VIAL IV ONE (13:30)
[2023-05-13] MEDS ORDERED: HYDROMORPHONE HCL 0.5 MG/ 0.5 ML SYRINGE IV PRN (13:30)
[2023-05-13] MEDS: METOCLOPRAMIDE INJ 10MG/2ML VIAL IV SCH ×2 (13:54→20:07)
[2023-05-13] MEDS: ERTAPENEM SODIUM 1 GM in NS MINI-BAG PLUS 50 ML IV SCH (16:28)
[2023-05-13] MEDS ORDERED: ACETAMINOPHEN *IV* 500 MG in IV 1 EA IV ONE (23:00)
[2023-05-13] MEDS: LIDOCAINE 5% (LIDODERM) PATCH TD SCH (23:13)
[2023-05-14] MEDS: METOCLOPRAMIDE INJ 10MG/2ML VIAL IV SCH ×4 (03:03→20:19)
[2023-05-14 03:05] VITALS: BP 114/56; TEMP 99.3; O2SAT 96
[2023-05-14] MEDS: HYDROMORPHONE HCL 0.5 MG/ 0.5 ML SYRINGE IV PRN ×5 (03:13→23:45)
[2023-05-14] MEDS: D5W/0.45% SODIUM CHLORIDE 1,000 ML IV SCH ×2 (05:25)
[2023-05-14] MEDS: ONDANSETRON 4MG 2ML VIAL IV PRN ×2 (06:01→16:37)
[2023-05-14 06:39] LABS: BASO % 0.3 % (0.0-1.0); EOS # 0.1 10^3/uL (0.0-0.5); EOS % 1.8 % (0.0-3.0); HEMATOCRIT 29.5 % (36.0-47.0); HEMOGLOBIN 9.9 g/dl (12.0-15.5); LYMPH % 12.8 % (24.0-44.0); MEAN CORPUSCULAR HEMOGLOBIN 30.8 pg (27.0-33.0); MEAN CORPUSCULAR HGB CONC 33.6 g/dl (32.0-36.5); MEAN CORPUSCULAR VOLUME 91.9 fl (80.0-96.0); MONO # 0.7 10^3/uL (0.0-0.8); MONO % 8.1 % (2.0-8.0); NEUTROPHILS # 6.2 10^3/uL (1.5-8.5); NEUTROPHILS % 76.7 % (36.0-66.0); PLATELET COUNT, AUTOMATED 163 10^3/uL (150-450); RED BLOOD COUNT 3.21 10^6/uL (4.00-5.40)
[2023-05-14 07:10] LABS: BLOOD UREA NITROGEN < 5 MG/DL (9-23); CALCIUM LEVEL 7.3 MG/DL (8.3-10.6); CARBON DIOXIDE LEVEL 34 MMOL/L (20-31); CHLORIDE LEVEL 100 MMOL/L (98-107); GLOMERULAR FILTRATION RATE > 60.0 (>32); GLUCOSE, FASTING 117 MG/DL (74-106); MAGNESIUM LEVEL 1.6 MG/DL (1.8-2.4); POTASSIUM SERUM 2.4 MMOL/L (3.5-5.1); SODIUM LEVEL 137 MMOL/L (136-145)
[2023-05-14 07:32] VITALS: BP 114/60; TEMP 99; O2SAT 97
[2023-05-14] MEDS: ENOXAPARIN 40MG/0.4ML SYRINGE (J1650 PER 10MG) SC SCH (08:10)
[2023-05-14] MEDS ORDERED: POTASSIUM CHLORIDE 10% LIQ 20MEQ/15ML UDC PO SCH (09:00)
[2023-05-14 09:26] LABS: IONIZED CALCIUM 4.1 MG/DL (4.5-5.3)
[2023-05-14 09:55] LABS: MAGNESIUM LEVEL 1.6 MG/DL (1.8-2.4)
[2023-05-14] MEDS: KCL 40MEQ IN D5/0.45NS 1000ML 1,000 ML IV SCH ×2 (10:14→20:21)
[2023-05-14] MEDS: KCL 10MEQ/100ML SWI (KRUN) 10 MEQ in IV 1 EA IV SCH ×3 (11:03→13:59)
[2023-05-14] MEDS ORDERED: MAG SULF 1GM/100ML (MAG RUN) 1 GM in IV 1 EA IV ONE (15:00)
[2023-05-14] MEDS ORDERED: CALCIUM GLUCONATE 1,000 MG in D5W MINI-BAG PLUS 100 ML IV ONE (16:00)
[2023-05-14] MEDS: ERTAPENEM SODIUM 1 GM in NS MINI-BAG PLUS 50 ML IV SCH (18:25)
[2023-05-14 20:17] VITALS: BP 140/63; TEMP 97.9; O2SAT 98
[2023-05-14] MEDS: LIDOCAINE 5% (LIDODERM) PATCH TD SCH (20:24)
[2023-05-15] MEDS: METOCLOPRAMIDE INJ 10MG/2ML VIAL IV SCH ×4 (02:53→20:18)
[2023-05-15 05:17] VITALS: BP 139/67; TEMP 98.5; O2SAT 95
[2023-05-15 06:17] LABS: BASO % 0.4 % (0.0-1.0); EOS # 0.4 10^3/uL (0.0-0.5); EOS % 5.5 % (0.0-3.0); HEMATOCRIT 31.5 % (36.0-47.0); HEMOGLOBIN 10.6 g/dl (12.0-15.5); LYMPH # 1.3 10^3/uL (1.5-5.0); LYMPH % 17.3 % (24.0-44.0); MEAN CORPUSCULAR HGB CONC 33.7 g/dl (32.0-36.5); MEAN CORPUSCULAR VOLUME 92.1 fl (80.0-96.0); MONO # 0.9 10^3/uL (0.0-0.8); MONO % 11.8 % (2.0-8.0); NEUTROPHILS # 4.7 10^3/uL (1.5-8.5); NEUTROPHILS % 64.6 % (36.0-66.0); PLATELET COUNT, AUTOMATED 207 10^3/uL (150-450); RED BLOOD COUNT 3.42 10^6/uL (4.00-5.40); WHITE BLOOD COUNT 7.3 10^3/uL (4.0-10.0)
[2023-05-15 06:49] LABS: BLOOD UREA NITROGEN < 5 MG/DL (9-23); CALCIUM LEVEL 7.9 MG/DL (8.3-10.6); CARBON DIOXIDE LEVEL 31 MMOL/L (20-31); CHLORIDE LEVEL 102 MMOL/L (98-107); CREATININE FOR GFR 0.51 MG/DL (0.55-1.30); GLOMERULAR FILTRATION RATE > 60.0 (>32); GLUCOSE, FASTING 97 MG/DL (74-106); MAGNESIUM LEVEL 1.7 MG/DL (1.8-2.4); POTASSIUM SERUM 3.4 MMOL/L (3.5-5.1); SODIUM LEVEL 137 MMOL/L (136-145)
[2023-05-15] MEDS ORDERED: CALCIUM GLUCONATE 1,000 MG in D5W MINI-BAG PLUS 100 ML IV ONE (08:00)
[2023-05-15 08:09] VITALS: BP 164/74; TEMP 98.3; O2SAT 95
[2023-05-15] MEDS: HYDROMORPHONE HCL 0.5 MG/ 0.5 ML SYRINGE IV PRN ×3 (08:51→20:19)
[2023-05-15] MEDS ORDERED: MAG SULF 1GM/100ML (MAG RUN) 1 GM in IV 1 EA IV ONE (09:00)
[2023-05-15] MEDS ORDERED: SIMETHICONE 80MG CHEW TAB PO PRN (09:05)
[2023-05-15] MEDS ORDERED: KETOROLAC 30 MG/ML 1ML VIAL IV ONE (09:05)
[2023-05-15] MEDS: ENOXAPARIN 40MG/0.4ML SYRINGE (J1650 PER 10MG) SC SCH (09:47)
[2023-05-15] MEDS: KCL 10MEQ/100ML SWI (KRUN) 10 MEQ in IV 1 EA IV SCH ×2 (10:43→12:00)
[2023-05-15] MEDS: KCL 40MEQ IN D5/0.45NS 1000ML 1,000 ML IV SCH ×2 (12:05→23:18)
[2023-05-15 16:06] VITALS: BP 127/70; TEMP 99.6; O2SAT 99
[2023-05-15] MEDS: ONDANSETRON 4MG 2ML VIAL IV PRN (16:58)
[2023-05-15] MEDS: ERTAPENEM SODIUM 1 GM in NS MINI-BAG PLUS 50 ML IV SCH (16:59)
[2023-05-15] MEDS: LIDOCAINE 5% (LIDODERM) PATCH TD SCH (20:18)
[2023-05-15 20:20] VITALS: BP 155/72; TEMP 98.2; O2SAT 97
[2023-05-16] MEDS: METOCLOPRAMIDE INJ 10MG/2ML VIAL IV SCH ×4 (03:09→21:04)
[2023-05-16 04:07] VITALS: BP 151/72; TEMP 98.1; O2SAT 96
[2023-05-16 06:47] LABS: BASO % 0.4 % (0.0-1.0); EOS # 0.7 10^3/uL (0.0-0.5); EOS % 8.3 % (0.0-3.0); LYMPH # 1.1 10^3/uL (1.5-5.0); LYMPH % 13.2 % (24.0-44.0); MEAN CORPUSCULAR HEMOGLOBIN 31.2 pg (27.0-33.0); MEAN CORPUSCULAR HGB CONC 33.3 g/dl (32.0-36.5); MEAN CORPUSCULAR VOLUME 93.5 fl (80.0-96.0); MONO # 1.1 10^3/uL (0.0-0.8); MONO % 13.9 % (2.0-8.0); NEUTROPHILS # 5.1 10^3/uL (1.5-8.5); NEUTROPHILS % 63.7 % (36.0-66.0); PLATELET COUNT, AUTOMATED 237 10^3/uL (150-450); RED BLOOD COUNT 3.53 10^6/uL (4.00-5.40)
[2023-05-16 07:22] LABS: BLOOD UREA NITROGEN < 5 MG/DL (9-23); CALCIUM LEVEL 8.4 MG/DL (8.3-10.6); CARBON DIOXIDE LEVEL 28 MMOL/L (20-31); CHLORIDE LEVEL 102 MMOL/L (98-107); CREATININE FOR GFR 0.49 MG/DL (0.55-1.30); GLOMERULAR FILTRATION RATE > 60.0 (>32); GLUCOSE, FASTING 99 MG/DL (74-106); MAGNESIUM LEVEL 1.8 MG/DL (1.8-2.4); POTASSIUM SERUM 4.4 MMOL/L (3.5-5.1); SODIUM LEVEL 135 MMOL/L (136-145)
[2023-05-16 07:32] VITALS: BP 138/78; TEMP 98; O2SAT 98
[2023-05-16] MEDS ORDERED: MAG SULF 1GM/100ML (MAG RUN) 1 GM in IV 1 EA IV ONE (08:00)
[2023-05-16] MEDS: ENOXAPARIN 40MG/0.4ML SYRINGE (J1650 PER 10MG) SC SCH (08:11)
[2023-05-16] MEDS: HYDROMORPHONE HCL 0.5 MG/ 0.5 ML SYRINGE IV PRN ×3 (08:11→15:13)
[2023-05-16] MEDS: KCL 40MEQ IN D5/0.45NS 1000ML 1,000 ML IV SCH ×2 (08:15→19:29)
[2023-05-16 15:15] VITALS: BP 145/72; TEMP 98; O2SAT 96
[2023-05-16 19:44] VITALS: BP 148/76; TEMP 97.8; O2SAT 95
[2023-05-16] MEDS: LIDOCAINE 5% (LIDODERM) PATCH TD SCH (21:04)
[2023-05-17] MEDS: HYDROMORPHONE HCL 0.5 MG/ 0.5 ML SYRINGE IV PRN ×2 (00:36→03:51)
[2023-05-17] MEDS: METOCLOPRAMIDE INJ 10MG/2ML VIAL IV SCH ×4 (03:50→20:38)
[2023-05-17 04:04] VITALS: BP 119/63; TEMP 97.5; O2SAT 99
[2023-05-17 04:46] LABS: BASO % 0.4 % (0.0-1.0); EOS # 0.9 10^3/uL (0.0-0.5); EOS % 8.1 % (0.0-3.0); HEMATOCRIT 35.2 % (36.0-47.0); HEMOGLOBIN 11.8 g/dl (12.0-15.5); LYMPH # 1.5 10^3/uL (1.5-5.0); LYMPH % 13.9 % (24.0-44.0); MEAN CORPUSCULAR HEMOGLOBIN 30.9 pg (27.0-33.0); MEAN CORPUSCULAR HGB CONC 33.5 g/dl (32.0-36.5); MEAN CORPUSCULAR VOLUME 92.1 fl (80.0-96.0); MONO # 1.7 10^3/uL (0.0-0.8); MONO % 15.7 % (2.0-8.0); NEUTROPHILS # 6.8 10^3/uL (1.5-8.5); NEUTROPHILS % 61.2 % (36.0-66.0); PLATELET COUNT, AUTOMATED 259 10^3/uL (150-450); RED BLOOD COUNT 3.82 10^6/uL (4.00-5.40)
[2023-05-17 05:14] LABS: BLOOD UREA NITROGEN < 5 MG/DL (9-23); CALCIUM LEVEL 8.5 MG/DL (8.3-10.6); CARBON DIOXIDE LEVEL 26 MMOL/L (20-31); CHLORIDE LEVEL 101 MMOL/L (98-107); CREATININE FOR GFR 0.49 MG/DL (0.55-1.30); GLOMERULAR FILTRATION RATE > 60.0 (>32); GLUCOSE, FASTING 97 MG/DL (74-106); MAGNESIUM LEVEL 1.8 MG/DL (1.8-2.4); POTASSIUM SERUM 4.5 MMOL/L (3.5-5.1); SODIUM LEVEL 133 MMOL/L (136-145)
[2023-05-17] MEDS: KCL 40MEQ IN D5/0.45NS 1000ML 1,000 ML IV SCH (05:25)
[2023-05-17 07:20] VITALS: BP 132/78; TEMP 97.2; O2SAT 97
[2023-05-17] MEDS: ENOXAPARIN 40MG/0.4ML SYRINGE (J1650 PER 10MG) SC SCH (09:29)
[2023-05-17] MEDS: ANEXSIA, NORCO 7.5MG/325MG TABLET(HYDROCODONE/APAP) PO ONE ×2 (09:29→09:34)
[2023-05-17] MEDS ORDERED: KETOROLAC 30 MG/ML 1ML VIAL IV ONE (10:00)
[2023-05-17 10:18] LABS: CLOSTRIDIUM DIFFICILE PCR NEGATIVE (NEGATIVE)
[2023-05-17] MEDS: GABAPENTIN 300 MG CAP PO SCH ×3 (12:00→18:03)
[2023-05-17] MEDS: tiZANidine 4 MG TAB PO SCH ×3 (13:15→20:44)
[2023-05-17] MEDS: LOPERAMIDE 2 MG CAPLET PO ONE ×2 (13:20→13:45)
[2023-05-17] MEDS: METAMUCIL (PSYLLIUM) PACKET PO SCH ×3 (13:20→20:46)
[2023-05-17] MEDS ORDERED: HYDR-4517 PO (13:21)
[2023-05-17] MEDS ORDERED: META0.52 PO (13:21)
[2023-05-17] MEDS ORDERED: META28.32 PO (13:21)
[2023-05-17] MEDS ORDERED: LOPE2CA PO (13:21)
[2023-05-17] MEDS: NORCO, ANEXSIA 5/325MG TABLET (HYDROcodone/ACETAMINOPHEN) PO SCH ×2 (13:46→20:40)
[2023-05-17] MEDS ORDERED: PERC10TA26 PO (15:38)
[2023-05-17] MEDS: ONDANSETRON 4MG 2ML VIAL IV PRN (18:02)
[2023-05-17] MEDS: LOPERAMIDE 2 MG CAPLET PO PRN (18:03)
[2023-05-17] MEDS: LIDOCAINE 5% (LIDODERM) PATCH TD SCH ×2 (20:40→20:48)
[2023-05-18] MEDS: METOCLOPRAMIDE INJ 10MG/2ML VIAL IV SCH ×4 (02:00→20:00)
[2023-05-18 05:01] VITALS: BP 112/53; TEMP 98.6; O2SAT 95
[2023-05-18] MEDS: GABAPENTIN 300 MG CAP PO SCH ×4 (05:47→17:10)
[2023-05-18 06:02] LABS: BASO # 0.1 10^3/uL (0.0-0.2); BASO % 0.5 % (0.0-1.0); EOS # 0.9 10^3/uL (0.0-0.5); EOS % 9.9 % (0.0-3.0); HEMATOCRIT 30.9 % (36.0-47.0); HEMOGLOBIN 10.5 g/dl (12.0-15.5); LYMPH # 1.2 10^3/uL (1.5-5.0); LYMPH % 13.1 % (24.0-44.0); MEAN CORPUSCULAR HEMOGLOBIN 31.4 pg (27.0-33.0); MEAN CORPUSCULAR VOLUME 92.5 fl (80.0-96.0); MONO # 1.7 10^3/uL (0.0-0.8); MONO % 18.6 % (2.0-8.0); NEUTROPHILS # 5.2 10^3/uL (1.5-8.5); NEUTROPHILS % 56.5 % (36.0-66.0); PLATELET COUNT, AUTOMATED 285 10^3/uL (150-450); RED BLOOD COUNT 3.34 10^6/uL (4.00-5.40); WHITE BLOOD COUNT 9.2 10^3/uL (4.0-10.0)
[2023-05-18] MEDS: CLOTRIMAZOLE 10 MG TROCHE PO SCH ×5 (06:06→20:31)
[2023-05-18 06:23] LABS: BLOOD UREA NITROGEN 6 MG/DL (9-23); CALCIUM LEVEL 8.3 MG/DL (8.3-10.6); CARBON DIOXIDE LEVEL 28 MMOL/L (20-31); CHLORIDE LEVEL 102 MMOL/L (98-107); CREATININE FOR GFR 0.63 MG/DL (0.55-1.30); GLOMERULAR FILTRATION RATE > 60.0 (>32); GLUCOSE, FASTING 84 MG/DL (74-106); MAGNESIUM LEVEL 1.7 MG/DL (1.8-2.4); SODIUM LEVEL 136 MMOL/L (136-145)
[2023-05-18] MEDS: ZINC SULFATE 220 MG CAP PO SCH (08:58)
[2023-05-18] MEDS: METAMUCIL (PSYLLIUM) PACKET PO SCH ×2 (08:58→20:31)
[2023-05-18] MEDS: tiZANidine 4 MG TAB PO SCH ×3 (08:58→20:37)
[2023-05-18] MEDS: POTASSIUM CHLORIDE 10MEQ SR TABLET PO SCH (08:58)
[2023-05-18] MEDS: NYSTATIN 500,000U/5ML SUSP UDC SS SCH ×4 (08:58→20:31)
[2023-05-18] MEDS: NORCO, ANEXSIA 5/325MG TABLET (HYDROcodone/ACETAMINOPHEN) PO SCH ×2 (08:59→20:32)
[2023-05-18] MEDS: ENOXAPARIN 40MG/0.4ML SYRINGE (J1650 PER 10MG) SC SCH (08:59)
[2023-05-18] MEDS ORDERED: NYSTATIN 100,000 UNITS/GM TOPICAL PWD 15GM TOP SCH (09:00)
[2023-05-18] MEDS: ONDANSETRON 4MG 2ML VIAL IV PRN ×2 (12:00→12:02)
[2023-05-18] MEDS ORDERED: NALOXONE INJ 0.4MG/1ML VIAL IV PRN (14:40)
[2023-05-18] MEDS ORDERED: ANEXSIA, NORCO 7.5MG/325MG TABLET(HYDROCODONE/APAP) PO ONE (14:40)
[2023-05-18] MEDS: LIDOCAINE 5% (LIDODERM) PATCH TD SCH (20:32)
[2023-05-18] MEDS: LOPERAMIDE 2 MG CAPLET PO PRN (20:37)
[2023-05-18] MEDS ORDERED: ONDANSETRON 4MG ORAL DISINTEGRATING TAB PO PRN (21:10)
[2023-05-19] MEDS: CLOTRIMAZOLE 10 MG TROCHE PO SCH ×2 (05:02→09:04)
[2023-05-19] MEDS: GABAPENTIN 300 MG CAP PO SCH ×2 (05:03)
[2023-05-19 06:22] VITALS: BP 106/56; TEMP 99.1; O2SAT 94
[2023-05-19] MEDS ORDERED: MYCOLOG CREAM 15GM (NYSTATIN/TRIAMCINOLONE) TOP SCH (09:00)
[2023-05-19] MEDS: NYSTATIN 500,000U/5ML SUSP UDC SS SCH (09:04)
[2023-05-19] MEDS: tiZANidine 4 MG TAB PO SCH (09:04)
[2023-05-19] MEDS: ZINC SULFATE 220 MG CAP PO SCH (09:04)
[2023-05-19] MEDS: ENOXAPARIN 40MG/0.4ML SYRINGE (J1650 PER 10MG) SC SCH (09:04)
[2023-05-19] MEDS: METAMUCIL (PSYLLIUM) PACKET PO SCH (09:04)
[2023-05-19] MEDS: NORCO, ANEXSIA 5/325MG TABLET (HYDROcodone/ACETAMINOPHEN) PO SCH (09:05)
[2023-05-19] MEDS: POTASSIUM CHLORIDE 10MEQ SR TABLET PO SCH (09:05)
[2023-05-19] MEDS ORDERED: NYST-38 PO (15:37)
[2023-05-19] MEDS ORDERED: CLOT10TR PO (15:39)
== END 2023-05-19 11:57 | disposition home health service (06) | DRG 853 ==
LOC: EDBD 11:31 → M ED 11:31 → M ED INP 17:47 → M ICU 20:50 → M PCU 05-13 21:33 → M MSPAV 05-17 20:01
PROVIDERS: ADMIT General Practice; ATTEND General Practice
PROC: 0DCW0ZZ Extirpation of Matter from Peritoneum, Open Approach (ICD-10-PCS; 2023-05-11)
PROC: 02HV33Z Insertion of Infusion Device into Superior Vena Cava, Percutaneous Approach (ICD-10-PCS; 2023-05-11)
PROC: 0DB80ZZ Excision of Small Intestine, Open Approach (ICD-10-PCS; principal; 2023-05-11 17:04)
DX: A41.9 Sepsis, unspecified organism (principal); K55.059 Acute (reversible) ischemia of intestine, part and extent unspecified; K66.1 Hemoperitoneum; R65.21 Severe sepsis with septic shock; K57.93 Diverticulitis of intestine, part unspecified, without perforation or abscess with bleeding; R18.8 Other ascites; D62 Acute posthemorrhagic anemia; E87.20 Acidosis, unspecified; E87.1 Hypo-osmolality and hyponatremia; K46.0 Unspecified abdominal hernia with obstruction, without gangrene; B37.0 Candidal stomatitis; I24.89 Other forms of acute ischemic heart disease; J45.909 Unspecified asthma, uncomplicated; E78.5 Hyperlipidemia, unspecified; E83.42 Hypomagnesemia; E87.6 Hypokalemia; I10 Essential (primary) hypertension; R19.7 Diarrhea, unspecified; G47.33 Obstructive sleep apnea (adult) (pediatric); K21.9 Gastro-esophageal reflux disease without esophagitis; G89.29 Other chronic pain; M54.9 Dorsalgia, unspecified; Z53.21 Procedure and treatment not carried out due to patient leaving prior to being seen by health care provider; Z86.711 Personal history of pulmonary embolism; Z95.828 Presence of other vascular implants and grafts; Z96.651 Presence of right artificial knee joint; Z90.49 Acquired absence of other specified parts of digestive tract; Z79.899 Other long term (current) drug therapy; Z88.0 Allergy status to penicillin; Z88.2 Allergy status to sulfonamides; Z88.5 Allergy status to narcotic agent; Z88.8 Allergy status to other drugs, medicaments and biological substances; Z91.041 Radiographic dye allergy status

== ENCOUNTER → 2023-10-25 | Outpatient (REF) | payer OTHER ==
[~2023-10-25] MED LIST changes: +ARNU1INH INH; +CLOT10TR PO; +DEXA0.5E2 SSP; +DOXY-323 PO; -DOXY-443 PO; +HYDR-3713 PO; +HYDR-4517 PO; +LOPE2CA PO; +META0.52 PO; +META28.32 PO; +NYST-38 PO; +ONDA-282 PO; -ONDA4TAB6 PO; +PERC10TA26 PO; +ZINC220CA PO
== END ==
LOC: M LAB REF 16:12
PROVIDERS: ATTEND Physician Assistant Medical
DX: R30.0 Dysuria (principal)

== ENCOUNTER → 2023-12-25 | Outpatient (CLI) | payer OTHER | LOC: M WUC 15:46 | PROVIDERS: ATTEND Physician Assistant Medical | DX: M25.511 Pain in right shoulder (principal) ==

== ENCOUNTER 2024-05-01 11:24 | Emergency (ER) | payer MEDICARE ==
[~2024-05-01] VITALS: Ht 165.1 cm; Wt 50.9 kg
[~2024-05-01 11:24] MED LIST changes: +BUDE180A2 INH; -BUDE180INH INH; +BUDE90AE INH; -DOXY-323 PO; +DOXY-441 PO; +GABA-1490 PO; -GABA600T4 PO; -PULM90IN INH
[2024-05-01 11:28] VITALS: BP 176/86; O2SAT 95
[2024-05-01] MEDS ORDERED: ACETAMINOPHEN 325 MG TAB PO ONE (11:50)
[2024-05-01] MEDS: ONDANSETRON 4MG 2ML VIAL IV ONE (12:00)
[2024-05-01] MEDS: ACETAMINOPHEN *IV* 1,000 MG in IV 1 EA IV ONE (12:00)
[2024-05-01 12:45] LABS: BASO % 0.1 % (0.0-1.0); EOS # 0.1 10^3/uL (0.0-0.5); EOS % 1.9 % (0.0-3.0); HEMATOCRIT 42.7 % (36.0-47.0); HEMOGLOBIN 14.3 g/dl (12.0-15.5); LYMPH # 0.2 10^3/uL (1.5-5.0); LYMPH % 2.5 % (24.0-44.0); MEAN CORPUSCULAR HEMOGLOBIN 30.1 pg (27.0-33.0); MEAN CORPUSCULAR HGB CONC 33.5 g/dl (32.0-36.5); MEAN CORPUSCULAR VOLUME 89.9 fl (80.0-96.0); MONO # 0.6 10^3/uL (0.0-0.8); MONO % 8.4 % (2.0-8.0); NEUTROPHILS # 6.3 10^3/uL (1.5-8.5); NEUTROPHILS % 86.8 % (36.0-66.0); PLATELET COUNT, AUTOMATED 197 10^3/uL (150-450); RED BLOOD COUNT 4.75 10^6/uL (4.00-5.40); WHITE BLOOD COUNT 7.2 10^3/uL (4.0-10.0)
[2024-05-01 12:59] LABS: ALBUMIN 4.4 G/DL (3.2-5.2); ALKALINE PHOSPHATASE 103 U/L (35-104); ALT/SGPT 13 U/L (7.0-40); AST/SGOT 20 U/L (<34); BLOOD UREA NITROGEN 21 MG/DL (9-23); CALCIUM LEVEL 9.5 MG/DL (8.3-10.6); CARBON DIOXIDE LEVEL 27 MMOL/L (20-31); CHLORIDE LEVEL 98 MMOL/L (98-107); GLOMERULAR FILTRATION RATE > 60.0 (>32); GLUCOSE, FASTING 134 MG/DL (74-106); SODIUM LEVEL 136 MMOL/L (136-145); TOTAL PROTEIN 7.5 G/DL (5.7-8.2)
[2024-05-01] MEDS: POTASSIUM CHLORIDE 10MEQ SR TABLET PO ONE (14:55)
[2024-05-01] MEDS: NS 500 ML IV ONE (15:20)
[2024-05-01] MEDS: KETOROLAC 30 MG/ML 1ML VIAL IV ONE (15:20)
[2024-05-01 17:19] VITALS: TEMP 100.4
[2024-05-01] MEDS ORDERED: ONDA-282 PO (17:31)
== END 2024-05-01 18:22 | disposition home or self-care (01) ==
LOC: M ED 11:24
DX: E86.0 Dehydration (principal); U07.1 COVID-19; E87.6 Hypokalemia; I10 Essential (primary) hypertension; E78.5 Hyperlipidemia, unspecified; Z88.0 Allergy status to penicillin; Z88.2 Allergy status to sulfonamides; Z88.5 Allergy status to narcotic agent; Z88.8 Allergy status to other drugs, medicaments and biological substances; Z91.041 Radiographic dye allergy status; Z79.1 Long term (current) use of non-steroidal anti-inflammatories (NSAID); Z79.51 Long term (current) use of inhaled steroids; Z79.899 Other long term (current) drug therapy
CPT/HCPCS: 71046; 80053; 83605; 85025; 87040; 87486; 87581; 87633; 87798; 93041; 94760; 96374; 96375; 99284; J0131; J1885; J2405

== ENCOUNTER → 2024-05-15 | Outpatient (CLI) | payer MEDICARE | LOC: M WUC 14:09 | PROVIDERS: ATTEND Student in an Organized Health Care Education/Training Program | DX: J06.9 Acute upper respiratory infection, unspecified (principal) ==

== ENCOUNTER → 2024-05-27 | Outpatient (REF) | payer MEDICARE ==
[2024-05-27 18:13] LABS: BLOOD UREA NITROGEN 14 MG/DL (9-23); CREATININE FOR GFR 0.63 MG/DL (0.55-1.30); GLOMERULAR FILTRATION RATE > 60.0 (>32)
== END ==
LOC: M LABWUC 16:27
PROVIDERS: ATTEND Physician Assistant
DX: Z95.828 Presence of other vascular implants and grafts (principal)

== ENCOUNTER → 2024-06-02 | Outpatient (CLI) | payer MEDICARE | LOC: M WUC 15:20 | PROVIDERS: ATTEND Physician Assistant Medical | DX: J18.9 Pneumonia, unspecified organism (principal) ==

== ENCOUNTER → 2024-06-03 | Outpatient (CLI) | payer MEDICARE ==
[~2024-06-03] MED LIST changes: +ISOVUE-370 76% 100ML VIAL As Ordered ONE
== END ==
LOC: M RAD 13:12
PROVIDERS: ATTEND Surgery Vascular Surgery
DX: Z95.828 Presence of other vascular implants and grafts (principal); R91.8 Other nonspecific abnormal finding of lung field; N28.1 Cyst of kidney, acquired
CPT/HCPCS: 74174; Q9967

== ENCOUNTER → 2024-07-20 | Outpatient (CLI) | payer MEDICARE ==
[~2024-07-20] MED LIST changes: -ISOVUE-370 76% 100ML VIAL As Ordered ONE
== END ==
LOC: M RAD 11:03
PROVIDERS: ATTEND Surgery Vascular Surgery
DX: R91.8 Other nonspecific abnormal finding of lung field (principal)

== ENCOUNTER → 2024-11-30 | Outpatient (CLI) | payer MEDICARE ==
[~2024-11-30] MED LIST changes: +AMMO12CR4 TOP; -AMMO12CR7 TOP; -CLOT10TR PO; +CLOT10TR11 PO
== END ==
LOC: M RAD 12:52
PROVIDERS: ATTEND Surgery Vascular Surgery
DX: R91.8 Other nonspecific abnormal finding of lung field (principal); I77.810 Thoracic aortic ectasia; I72.2 Aneurysm of renal artery

== ENCOUNTER → 2025-03-19 | Outpatient (CLI) | payer MEDICARE | LOC: M PLAIMG 14:35 | PROVIDERS: ATTEND Student in an Organized Health Care Education/Training Program | DX: M25.552 Pain in left hip (principal); G89.29 Other chronic pain; M54.16 Radiculopathy, lumbar region; M54.59 Other low back pain ==